=== PATIENT | male | born 1945 | race Caucasian/White ===

== ENCOUNTER → 2016-05-20 | Outpatient (CLI) | payer MEDICARE ==
--- NOTE | 2016-05-20 12:15 | MR ---
EXAMINATION TYPE: MR lumbar spine wo con DATE OF EXAM: 05/20/2016 9:39 AM COMPARISON: NONE HISTORY: Low back pain TECHNIQUE: Multiplanar, multisequence images of the lumbar spine were acquired. L1-L2: Broad-based posterior disc bulge causes mild anterior mass effect on the thecal sac. Facet art hropathy encroaches on the lateral recesses right greater than right. Circumferential extension of en dplate disc complex encroaches mildly on foramina. L2-L3: Broad-based posterior disc bulge causes mild anterior mass effect on the thecal sac. Facet art hropathy worse on the lateral recesses. No significant foraminal encroachment, only mild central sten osis. L3-L4: Facet arthropathy with hypertrophy of the ligamentum flavum encroaches on the lateral recesses , circumferential extension of posterior broad-based disc bulge causes mild anterior mass effect on t he thecal sac and some bilateral foraminal encroachment. L4-L5: Listhesis contributes with facet arthropathy with hypertrophy of ligamentum flavum to cause se raymond central canal stenosis, there is a trefoil appearance of the thecal sac, hypertrophy of the liga mentum flavum causes lateral recess encroachment. L5-S1: Facet arthropathy is present. Circumferential extension of endplate disc complex results in fo raminal encroachment left greater than right. Small central posterior disc protrusion contacts the an terior thecal sac and possibly the proximal S1 nerve roots as on prior, eccentric disc bulge towards the left posteriorly and laterally. Lumbar segments are intact. No paraspinal masses are identified. Conus medullaris has a normal appe arance. Anterolisthesis grade 1 is stable at L4-5. There is multilevel spondylosis with endplate disc ogenic marrow signal change. Loss of disc height and signal is greatest at L5-S1 compatible with disc desiccation and degenerative disc disease as on prior exam. There is a scoliosis present. Large cortical cysts are associated with the left kidney as on prior. IMPRESSION: Spinal stenosis is most significant at L4-5 as on prior exam. There is multilevel facet arthropathy, foraminal encroachment, degenerative disc disease as described.
== END | disposition home or self-care (01) ==
LOC: RADMRIMAIN 08:56
PROVIDERS: ATTEND Family Medicine
DX: M48.06 Spinal stenosis, lumbar region (principal); M51.36 Other intervertebral disc degeneration, lumbar region; M46.96 Unspecified inflammatory spondylopathy, lumbar region
CPT/HCPCS: 72148

== ENCOUNTER → 2019-04-07 | Outpatient (CLI) | payer MEDICARE ==
--- NOTE | 2019-04-07 13:14 | US ---
EXAMINATION TYPE: US kidneys/renal and bladder DATE OF EXAM: 04/07/2019 COMPARISON: NONE CLINICAL HISTORY: R31.9 hEMATURIA. microscopic hematuria EXAM MEASUREMENTS: Right Kidney: 10.8 x 5.0 x 4.1 cm Left Kidney: 10.2 x 5.3 x 4.5 cm Right Kidney: perinephric fat noted anteriorly Left Kidney: cystic areas noted, largest = 5.8 x 4.7 x 5.2cm upper pole Bladder: appears wnl Bilateral Jets seen: yes IMPRESSION: 1. Superior pole left renal simple cyst
== END | disposition home or self-care (01) ==
LOC: RADUSWWP 12:40
PROVIDERS: ATTEND Internal Medicine Hematology & Oncology
DX: N28.1 Cyst of kidney, acquired (principal)
CPT/HCPCS: 76770

== ENCOUNTER 2021-11-27 12:29 | Day surgery (SDC) | payer MEDICARE ==
[~2021-11-27 12:29] MED LIST: ACETAMINOPHEN TAB 500 MG TAB PO PRN; GABAPENTIN 300 MG CAP PO PRN; HYDROmorphone 0.5 MG/0.5 ML SYRINGE IVP PRN; LIDOCAINE 1% (10MG/ML) FOR IV START INTRADERMA PRN; MELOXICAM 7.5 MG TAB PO PRN; ONDANSETRON 4 MG/2 ML VIAL IVP ONE; TRANEXAMIC ACID IN NACL,ISO-OS 1,000 MG in SALINE 1 100ML.BAG IVPB PRN; ceFAZolin 3 GM in SODIUM CHLORIDE 0.9% 100 ML IVPB PRN
[2021-11-27] MEDS: LACTATED RINGERS 1,000 ML IV SCH (12:53)
[2021-11-27] MEDS ORDERED: fentaNYL (PF) 50 MCG/ML 2 ML AMP ONE (14:38)
[2021-11-27] MEDS ORDERED: MIDAZOLAM 2 MG/2 ML VIAL ONE (14:38)
[2021-11-27] MEDS ORDERED: ceFAZolin 1,000 MG VIAL ONE (14:38)
[2021-11-27] MEDS ORDERED: SODIUM CHLORIDE 0.9% (PF) 10 ML VIAL ONE (14:38)
[2021-11-27] MEDS ORDERED: PHENYLEPHRINE-0.9% NACL SYG 1,000 MCG/10 ML SYRINGE ONE (14:38)
[2021-11-27] MEDS ORDERED: ROPIVACAINE 5 MG/ML 30 ML VIAL ONE (14:38)
[2021-11-27] MEDS ORDERED: DEXAMETHASONE SOD PHOSPHATE 4 MG/ML 1 ML VIAL ONE (14:38)
[2021-11-27] MEDS ORDERED: TRANEXAMIC ACID IN NACL,ISO-OS 1,000 MG/100 ML BAG ONE (14:38)
[2021-11-27] MEDS ORDERED: SODIUM CHLORIDE 0.9% 100 ML BAG ONE (14:38)
[2021-11-27] MEDS ORDERED: HYDROmorphone (PF) 1 MG/ML ONE (14:38)
[2021-11-27] MEDS ORDERED: PROPOFOL 10 MG/ML 20 ML VIAL IV ONE (14:38)
[2021-11-27 19:14] LABS: Glucose,Whole Blood 139 mg/dL (70-110)
[2021-11-27 19:16] LABS: Glucose,Whole Blood 172 mg/dL (70-110)
[2021-11-27] MEDS ORDERED: HYDROmorphone 0.5 MG/0.5 ML SYRINGE IVP PRN (21:31)
[2021-11-27] MEDS ORDERED: HYDROmorphone 1 MG/ML 1 ML SYRINGE IVP PRN (21:32)
[2021-11-27] MEDS ORDERED: ONDANSETRON 4 MG/2 ML VIAL IVP PRN (21:33)
[2021-11-27 21:41] LABS: Glucose,Whole Blood 392 mg/dL (70-110)
[2021-11-27] MEDS ORDERED: INSULIN ASPART (NovoLOG) 100 UNIT/ML VIAL SQ ONE (21:46)
[2021-11-27 22:49] LABS: Glucose,Whole Blood 340 mg/dL (70-110)
[2021-11-27] MEDS: INSULIN DETEMIR (LEVEMIR) 100 UNIT/ML SYR SQ SCH (23:18)
[2021-11-27] MEDS: GABAPENTIN 400 MG CAP PO SCH (23:19)
[2021-11-27] MEDS: atenoloL 25 MG TAB PO SCH (23:19)
[2021-11-28 02:38] LABS: Glucose,Whole Blood 215 mg/dL (70-110)
[2021-11-28] MEDS: LACTATED RINGERS 1,000 ML IV SCH (03:40)
[2021-11-28] MEDS: HYDROcodone/APAP 7.5-325MG 1 EACH TAB PO PRN ×3 (05:26→20:34)
[2021-11-28] MEDS: LEVOTHYROXINE 50 MCG TAB PO SCH (05:27)
[2021-11-28 06:52] LABS: Glucose,Whole Blood 253 mg/dL (70-110)
[2021-11-28] MEDS ORDERED: FUROSEMIDE 20 MG TAB PO SCH (09:00)
[2021-11-28] MEDS: allopurinoL 300 MG TAB PO SCH (09:58)
[2021-11-28] MEDS: LOSARTAN 50 MG TAB PO SCH (09:58)
[2021-11-28] MEDS: FENOFIBRATE 160 MG TAB PO SCH (09:58)
[2021-11-28] MEDS: ATORVASTATIN 40 MG TAB PO SCH (09:58)
[2021-11-28] MEDS: POTASSIUM CHLORIDE ER 10 MEQ TAB.ER.PRT PO SCH ×2 (09:58→20:34)
[2021-11-28] MEDS: GABAPENTIN 400 MG CAP PO SCH ×2 (09:58→20:35)
[2021-11-28] MEDS: ASCORBIC ACID 500 MG TAB PO SCH (09:58)
[2021-11-28] MEDS: amLODIPine 5 MG TAB PO SCH (09:58)
[2021-11-28] MEDS: INSULIN ASPART (NovoLOG) 100 UNIT/ML VIAL SQ SCH ×4 (09:59→21:45)
--- NOTE | 2021-11-28 10:16 | OP ---
OPERATIVE REPORT PREOPERATIVE DIAGNOSIS: Severe osteoarthritis of the right knee. POSTOPERATIVE DIAGNOSIS: Severe osteoarthritis of the right knee. PROCEDURE PERFORMED: Right total knee arthroplasty. IMPLANTS: 1. Decker and Nephew Journey II CR Oxinium cruciate-retaining femoral component, size 8, right. 2. Decker [employer] Nephew Journey nonporous tibial baseplate, size 7, right. 3. Decker [employer] Nephew Journey II XLPE deep-dished articular insert, size 7-8, right, 9 mm. 4. Decker and Nephew Norma II oval resurfacing patellar component, 35 mm. 5. All components were cemented using Palacos R bone cement. 6. The articulation was Oxinium on polyethylene. ANESTHESIA: General. ESTIMATED BLOOD LOSS: 50 mL. SPECIMENS REMOVED: Bone and cartilage. CONDITION: Stable. DISPOSITION: PACU. INDICATIONS FOR PROCEDURE: After failing conservative treatment, we discussed surgical and nonsurgical treatment options at length. The patient wishes to proceed with a total knee arthroplasty. Complications specific to this procedure were discussed at length, including but not limited to infection, bleeding, stiffness, and nerve injury. The patient was given the option of delaying surgery, but he wishes to proceed knowing these risks. The patient is aware of all these complications, and informed consent was obtained. OPERATIVE FINDINGS: The operative findings are consistent with severe osteoarthritis of the right knee. DESCRIPTION OF PROCEDURE: The patient was seen in the preoperative area, and the consent was reviewed, and the operative site was marked with a skin marker. The patient verified the procedure and the operative site. An adductor canal pain catheter and an iPACK block were placed by Anesthesia in the preoperative area. The patient was then brought to the operating room and given preoperative antibiotics intravenously. A gram of tranexamic acid was also given intravenously. A general anesthetic was then administered by the Anesthesia Department. Tourniquet was placed in the upper thigh, and the lower extremity was prepped with chlorhexidine and draped in the usual sterile fashion. A universal time- out was then performed to confirm the patient's name, surgical site, allergies, and consent. The lower extremity was then exsanguinated, and the tourniquet was inflated to 250 mmHg. A standard anterior midline approach to the knee was then performed. The skin and subcutaneous tissues were sharply dissected down to the patellar tendon. A medial parapatellar arthrotomy was then performed. The knee was then extended, the patella was everted, and the knee was again flexed. The infrapatellar fat pad was removed in order to enhance exposure. The anterior horns of both menisci were excised, and a release was performed at the posteromedial aspect of the knee. On gross visual inspection, there was complete loss of articular cartilage in the medial and patellofemoral joint spaces. There was also significant cartilage damage in the lateral compartment. There were multiple periarticular osteophytes globally about the knee, which were removed with a rongeur. Femoral canal was then opened with a 9.5 mm intramedullary drill. An 8 mm intramedullary leslie was inserted in the femoral canal with the distal femoral cutting guide set for 5 degrees of valgus. Distal femoral cutting block was then pinned in place. The intramedullary leslie was then removed, and the distal femur was then cut. The cutting block was then removed, and the cut was checked for symmetry. The resected bone was then measured to confirm the appropriate distal femoral resection. Next, the sizing guide was then placed and set for 3 degrees of external rotation based off the epicondylar axis and Bacon's line. Pins were then placed through the drill holes, and the femur was sized using the sizing stylus. The sizing guide was then removed. Spikes of the femoral block were then placed in the pre-drilled holes and malleted in place. Two 45 mm pins were then placed in the fixation holes on the cutting block. An Jason wing was used to ensure there be no notching with the anterior cut. The anterior condyles were then cut without notching. The anterior core cut was then performed followed by the posterior cut, posterior chamfer cut, and anterior chamfer cut. Collateral ligaments were protected during the entire process. The cutting block was then removed. Any remaining bone and osteophytes were removed off the femur with a rongeur. The femoral canal was plugged with autologous bone. Attention was then directed to the tibia. The remaining ACL was removed with a rongeur, and the tibia was gently subluxed forward with a large bent-knee retractor. Any remaining menisci were then excised. The posterolateral corner was cauterized in order to coagulate the lateral genicular artery. The extramedullary tibial cutting guide was then placed and set for the appropriate rotation, slope, and depth of resection. Proximal tibial cutting guide was then pinned in place. Proximal tibia was then cut and sized. Femoral trial was then placed. A narrow saw blade was then used to remove the anterior intercondylar femoral bone. CR notch trial was then placed. Tibial trial was then placed with appropriate-sized insert. The knee was able to fully extend and flex to 130 degrees and stable throughout all range of motion. The knee was then extended. The patella was everted. The patella was then measured, and then using an osteotomy guide, the patella was cut at the appropriate level. The patella was then measured and drilled, and the patella trial was then placed. The knee was taken through a range of motion with the patella trial, and the patella tracked normally using the no-thumb technique. The knee was then extended. The patella trial was removed, and the knee was again flexed. Lug holes were drilled through the femoral trial, and the femoral trial was then removed. The tibia was re-exposed, and the tibial broach guide was pinned in place after set for the appropriate rotation to allow for most coverage without overhang. The tibia was then reamed and broached. The cut surfaces were then irrigated with pulsatile lavage. The knee was also irrigated with Irrisept solution. Ports were then opened, the cement was mixed, and the components were cemented in place. The cement was allowed to harden with the knee in full extension. After the cement had hardened, the tourniquet was released, and hemostasis was obtained. A second gram of tranexamic acid was also given intravenously. The knee was again irrigated. Again, it was taken through a full range of motion and stable from 0 to 130 degrees, and the patella tracked normally. Fascia was closed with 0 Vicryl followed by #2 Stratafix suture. Subcutaneous tissue was closed with 3-0 Vicryl followed by 3-0 Stratafix. Exofin glue was used for the skin and placed on the knee in flexion. After the glue had dried, an Optifoam silver- impregnated dressing was applied. The patient was then transferred to recovery room in stable condition. Carburetor Expert, NIRAV Sommer was required due to the complexity of the surgery and the need for a skilled surgical technology instructor. She assisted in positioning, draping, retraction, and closure of the wound. MMODL / IJN: [id number] /
--- NOTE | 2021-11-28 10:26 | P.ANPRN ---
Procedure Note - Anesthesia - Nerve Block Performed Right Adductor Canal Infusion Time Out Performed: Yes (1333) Date of Procedure: 11/28/21 Procedure Start Time: 13:34 Procedure Stop Time: 13:39 Location of Patient: PreOp Indication: Acute Post-Operative Pain, Requested by Surgeon Specifically requested for management of pain by DrPeter: Emanuel Montalvo Sedation Type: Sedate with meaningful contact maintained Preparation: Sterile Prep Position: Supine Catheter Depth at Skin (cm): 8 Catheter: Indwelling Needle Types: Pajunk Needle Gauge: 18 Ultrasound used to visualize needle placement: Yes Ultrasound used to observe medication spread: Yes Injectate: 0.5% Ropivacaine (see comment for volume) (15cc+5cc nacl pf) Blood Aspirated: No Pain Paresthesia on Injection Noted: No Resistance on Injection: Normal Image Stored and Saved: Yes Events: Uneventful and Well Tolerated
--- NOTE | 2021-11-28 10:28 | P.ANPRN ---
Procedure Note - Anesthesia - Nerve Block Performed Right iPack Single Time Out Performed: Yes (1333) Date of Procedure: 11/28/21 Procedure Start Time: 13:40 Procedure Stop Time: 13:43 Location of Patient: PreOp Indication: Acute Post-Operative Pain, Requested by Surgeon Specifically requested for management of pain by DrPeter: Emanuel Montalvo Sedation Type: Sedate with meaningful contact maintained Preparation: Sterile Prep Position: Supine Catheter: None Needle Types: Pajunk Needle Gauge: 21 Ultrasound used to visualize needle placement: Yes Ultrasound used to observe medication spread: Yes Injectate: 0.5% Ropivacaine (see comment for volume) (15cc+ 5cc nacl pf) Blood Aspirated: No Pain Paresthesia on Injection Noted: No Resistance on Injection: Normal Image Stored and Saved: Yes Events: Uneventful and Well Tolerated
[2021-11-28 11:37] LABS: Glucose,Whole Blood 249 mg/dL (70-110)
--- NOTE | 2021-11-28 11:48 | P.PN ---
Subjective Progress Note Date: 11/28/21 Principal diagnosis: DJD right knee. S/P TKA right. This is a 76 yo male who is POD #1 s/p TKA right. No new complaints or concerns. Awaiting rehab placement.Vital signs are stable. Objective - Vital Signs Vital signs: Vital Signs Temp 98 F 11/28/21 07:23 Pulse 56 L 11/28/21 07:23 Resp 18 11/28/21 07:23 BP 176/67 11/28/21 07:23 Pulse Ox 96 11/28/21 07:23 FiO2 Intake & Output 11/27/21 11/28/21 11/28/21 18:59 06:59 18:59 Intake Total 296 Output Total 600 Balance -600 296 Weight 130.1 kg 130.1 kg Intake: Oral 296 Output: Urine 600 Other: Voiding Method Urinal Toilet Urinal # Voids 1 - Exam This is a pleasant 76-year-old male in no acute distress. He is alert and oriented 3. Exam of the right knee reveals that his dressing is clean, dry and intact. He has full foot and ankle motion without difficulty or pain. Neurovascular status to the lower extremity is intact. - Labs Labs: Abnormal Lab Results - Last 24 Hours (Table) 11/27/21 11/27/21 11/27/21 Range/Units 13:18 16:43 21:37 POC Glucose (mg/dL) 139 H 172 H 392 H (70-110) mg/dL 11/27/21 11/28/21 11/28/21 Range/Units 22:48 02:36 06:51 POC Glucose (mg/dL) 340 H 215 H 253 H (70-110) mg/dL Assessment and Plan (1) Primary osteoarthritis of right knee Current Visit: Yes Status: Acute Code(s): M17.11 - UNILATERAL PRIMARY OSTEOARTHRITIS, RIGHT KNEE SNOMED Code(s): 763182878986112 (2) Status post total right knee replacement Current Visit: Yes Status: Acute Code(s): Z96.651 - PRESENCE OF RIGHT ARTIFICIAL KNEE JOINT SNOMED Code(s): 0737330632015 Plan: The clinical findings are discussed with the patient. He is awaiting transfer to inpatient rehabilitation. Authorization is pending. Continue care.
[2021-11-28 16:56] LABS: Glucose,Whole Blood 186 mg/dL (70-110)
--- NOTE | 2021-11-28 18:10 | P.CONS ---
History of Present Illness - Reason for Consult Consult date: 11/28/21 Medical management Requesting physician: Emanuel Montalvo - Chief Complaint Right knee surgery - History of Present Illness This is a very pleasant 76-year-old patient who follows with Dr. Austin. Chronic stable medical conditions include diabetes, hypertension, hyperlipidemia, hypothyroid, gout. Bilateral kidney stones. Patient underwent right total knee arthroplasty yesterday. This morning, sitting up in a chair. Pain at the operative site. No nausea vomiting. Did eat his breakfast.. Denies any cardiac history. Patient has arthritic pain in other joints. Doing some passive exercises given to him. Review of systems: GEN.: None EYES: None HEENT: None NECK: None RESPIRATORY: None CARDIOVASCULAR: None GASTROINTESTINAL: None GENITOURINARY: None MUSCULOSKELETAL: Joint pains LYMPHATICS: None HEMATOLOGICAL: None PSYCHIATRY: None NEUROLOGICAL: None Past medical history to include: Diabetes, hypertension, hyperlipidemia, hypothyroid, gout, osteoarthritis, b ilateral kidney stones. Social history: Patient lives with his ex-. No smoking, no alcohol. 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 Physical examination: VITAL SIGNS: 98.0, 56, 18, 176/67, 96% room air GENERAL:, BMI 41.2, sitting up in chair, awake, comfortable. EYES: Pupils equal. Conjunctiva normal. HEENT: External appearance of nose and ears normal, oral cavity grossly normal. NECK: JVD not raised; masses not palpable. HEART: First and second heart sounds are normal; no edema. LUNGS: Respiratory rate normal; clear to auscultation. ABDOMEN: Soft, nontender, liver spleen not palpable, no masses palpable. PSYCH: Alert and oriented x3; mood and affect normal. MUSCULOSKELETAL:No Clubbing/cyanosis;muscles-grossly intact, evidence of OA. Dressing over the right knee. NEUROLOGICAL: Cranial nerves grossly intact; no facial asymmetry, power and sensation grossly intact. LYMPHATICS: No lymph nodes palpable in the axilla and neck INVESTIGATIONS, reviewed in the clinical context: Accu-Cheks noted. Assessment and plan: -Right total knee arthroplasty. Lovenox for DVT prophylaxis. Pain control. -Primary osteomyelitis multiple joints bilaterally Pain control. -Diabetes mellitus type 2 chronically on insulin. Accu-Cheks with sliding scale. -Essential hypertension Atenolol, amlodipine, losartan. -Hypothyroid Synthroid 50 g a -Hyperlipidemia Lipitor 40 mg a -Diabetic peripheral neuropathy Neurontin 400 mg twice a day. -Obesity BMI 41.2 Weight loss measures Patient does take Lasix 60 mg a day. He drinks at times of water. He gets lower extremity edema. Zebulon to be more venous insufficiency. We'll cut back the patient. 2000 mL daily. Cut back Lasix to 40 mg a day. Resume home medications. Subcu Lovenox for DVT prophylaxis. Check labs in the morning. Discussed at length with the patient. Thank you Dr. Montalvo Past Medical History Past Medical History: Diabetes Mellitus, Hyperlipidemia, Hypertension, Thyroid Disorder Additional Past Medical History / Comment(s): gout, heart murmur all his life. arthritis . painful knees bilaterally. hx kidney stones. History of Any Multi-Drug Resistant Organisms: None Reported Past Surgical History: Appendectomy, Tonsillectomy Additional Past Surgical History / Comment(s): 2 ganglion cyst left wrist and one on rt wrist. elbow surgery. rt shoulder surgery, lithotripsy Past Anesthesia/Blood Transfusion Reactions: No Reported Reaction Additional Past Anesthesia/Blood Transfusion Reaction / Comm: no blood transfusions Past Psychological History: No Psychological Hx Reported Smoking Status: Never smoker Past Alcohol Use History: None Reported Past Drug Use History: None Reported - Past Family History Father Family Medical History: Myocardial Infarction ([place]) Additional Family Medical History / Comment(s): cabg Medications and Allergies Home Medications Medication Instructions Recorded Confirmed Type Ascorbic Acid [Vitamin C] 500 mg PO DAILY 11/22/21 11/22/21 History Atorvastatin Calcium [Lipitor] 40 mg PO DAILY 11/22/21 11/22/21 History Fenofibrate 160 mg PO DAILY 11/22/21 11/22/21 History Insulin Aspart [NovoLOG Flexpen] 0 units SQ BID 11/22/21 11/22/21 History Insulin Glargine,Hum.rec.anlog 60 units SQ HS 11/22/21 11/22/21 History [Lantus Solostar Pen] Levothyroxine Sodium [Synthroid] 50 mcg PO DAILY 11/22/21 11/22/21 History Losartan Potassium 100 mg PO DAILY 11/22/21 11/22/21 History Potassium Chloride [K-Tab ER] 10 meq PO BID 11/22/21 11/22/21 History Unk Fish Oil 1 tab PO DAILY 11/22/21 11/22/21 History Unk Garlic 1 tab PO DAILY 11/22/21 11/22/21 History allopurinoL 300 mg PO DAILY 11/22/21 11/22/21 History amLODIPine [Norvasc] 5 mg PO DAILY 11/22/21 11/22/21 History atenoloL 25 mg PO HS 11/22/21 11/22/21 History Aspirin 325 mg PO BID #60 tab 11/28/21 Rx Celecoxib [CeleBREX] 200 mg PO DAILY #30 capsule 11/28/21 Rx Furosemide [Lasix] 40 mg PO DAILY #0 11/28/21 11/22/21 Rx Gabapentin [Neurontin] 400 mg PO BID #6 cap 11/28/21 Rx HYDROcodone/APAP 7.5-325MG [[place] 1 - 2 tab PO Q6HR PRN #32 tab 11/28/21 Rx 7.5-325] Ondansetron Odt [Zofran Odt] 4 mg PO Q8HR PRN #14 tab 11/28/21 Rx Sennosides-Docusate Sodium 1 tab PO BID #60 tablet 11/28/21 Rx [Senokot-S] Allergies Allergy/AdvReac Type Severity Reaction Status Date / Time No Known Allergies Allergy Verified 11/27/21 12:52 Physical Exam Vitals: Vital Signs Temp Pulse Resp BP Pulse Ox 11/28/21 07:23 98 F 56 L 18 176/67 96 11/28/21 02:00 97.5 F L 59 L 18 134/79 95 11/27/21 23:15 70 148/82 11/27/21 20:24 97.9 F 73 18 148/83 98 Intake and Output 11/27/21 11/28/21 11/28/21 22:59 06:59 14:59 Intake Total 296 Output Total 300 300 Balance -300 -300 296 Intake: Oral 296 Output: Urine 300 300 Other: Voiding Method Urinal Toilet Urinal # Voids 1 Weight 130.1 kg Results Labs: Abnormal Lab Results - Last 24 Hours (Table) 11/27/21 11/27/21 11/27/21 Range/Units 13:18 16:43 21:37 POC Glucose (mg/dL) 139 H 172 H 392 H (70-110) mg/dL 11/27/21 11/28/21 11/28/21 Range/Units 22:48 02:36 06:51 POC Glucose (mg/dL) 340 H 215 H 253 H (70-110) mg/dL
[2021-11-28] MEDS: ENOXAPARIN 30 MG/0.3 ML SYRINGE SQ SCH (20:35)
[2021-11-28] MEDS: atenoloL 25 MG TAB PO SCH (20:35)
[2021-11-28] MEDS: INSULIN DETEMIR (LEVEMIR) 100 UNIT/ML SYR SQ SCH (20:37)
[2021-11-28 20:44] LABS: Glucose,Whole Blood 289 mg/dL (70-110)
[2021-11-29] MEDS: LACTATED RINGERS 1,000 ML IV SCH (05:01)
[2021-11-29] MEDS: LEVOTHYROXINE 50 MCG TAB PO SCH (05:13)
[2021-11-29] MEDS: HYDROcodone/APAP 7.5-325MG 1 EACH TAB PO PRN ×3 (05:15→21:24)
[2021-11-29 07:11] LABS: Glucose,Whole Blood 200 mg/dL (70-110)
[2021-11-29 07:11] LABS: Basophils % (A) 0 %; Eosinophils # (A) 0.1 k/uL (0-0.7); Eosinophils % (A) 2 %; HCT 35.4 % (39.0-53.0); HGB 11.7 gm/dL (13.0-17.5); Lymphocytes # (A) 2.6 k/uL (1.0-4.8); Lymphocytes % (A) 33 %; MCH 31.7 pg (25.0-35.0); MCHC 33.1 g/dL (31.0-37.0); MCV 95.9 fL (80.0-100.0); Mean Platelet Volume 7.6; Monocytes # (A) 0.6 k/uL (0-1.0); Monocytes % (A) 8 %; Neutrophils # (A) 4.4 k/uL (1.3-7.7); Neutrophils % (A) 56 %; Platelet Count 170 k/uL (150-450); RDW 14.7 % (11.5-15.5); WBC 7.9 k/uL (3.8-10.6)
[2021-11-29 07:22] LABS: African American GFR (CKD) 55 (>60 ml/min/1.73 sqM); Anion Gap 8 mmol/L; Blood Urea Nitrogen 28 mg/dL (9-20); Calcium 8.5 mg/dL (8.4-10.2); Carbon Dioxide 23 mmol/L (22-30); Chloride 107 mmol/L (98-107); Glucose 195 mg/dL (74-99); Non-African American GFR(CKD) 48 (>60 ml/min/1.73 sqM); Potassium 4.1 mmol/L (3.5-5.1); Sodium 138 mmol/L (137-145)
[2021-11-29] MEDS: INSULIN ASPART (NovoLOG) 100 UNIT/ML VIAL SQ SCH ×4 (08:05→21:13)
[2021-11-29] MEDS: FENOFIBRATE 160 MG TAB PO SCH (08:05)
[2021-11-29] MEDS: GABAPENTIN 400 MG CAP PO SCH ×2 (08:05→21:12)
[2021-11-29] MEDS: allopurinoL 300 MG TAB PO SCH (08:05)
[2021-11-29] MEDS: LOSARTAN 50 MG TAB PO SCH (08:05)
[2021-11-29] MEDS: amLODIPine 5 MG TAB PO SCH (08:05)
[2021-11-29] MEDS: FUROSEMIDE 40 MG TAB PO SCH ×2 (08:06→08:15)
[2021-11-29] MEDS: POTASSIUM CHLORIDE ER 10 MEQ TAB.ER.PRT PO SCH ×2 (08:06→21:12)
[2021-11-29] MEDS: ASCORBIC ACID 500 MG TAB PO SCH (08:06)
[2021-11-29] MEDS: ATORVASTATIN 40 MG TAB PO SCH (08:06)
[2021-11-29] MEDS: ENOXAPARIN 30 MG/0.3 ML SYRINGE SQ SCH ×2 (08:11→21:12)
--- NOTE | 2021-11-29 10:04 | P.DS ---
Providers Expected date of discharge: 11/29/21 Attending physician: Emanuel Montalvo Consults: 11/27/21 21:39 Consult Physician Routine Consulting Provider: Daniel Kovacs Consult Reason/Comments: Medical Management Do you want consulting provider notified?: Yes Primary care physician: Dave Austin - Discharge Diagnosis(es) (1) Primary osteoarthritis of right knee Current Visit: Yes Status: Acute (2) Status post total right knee replacement Current Visit: Yes Status: Acute Hospital Course: This is a 76-year-old male with known history of degenerative arthritis of the right knee. The patient presented for evaluation as an outpatient. After disc ussion and consideration patient elects to proceed with total knee arthroplasty. The patient is seen preoperatively by Dr. Montalvo and medically cleared for surgery by their primary care physician. Patient is admitted to [facility] on 11/27/2021 for total knee arthroplasty. The procedure is performed without complication or sequelae. The patient is doing well postoperatively. Labs and vital signs are stable on day of discharge. On day of discharge patient's knee incision is healing well. There is minimal erythema. There is no drainage noted at this time. There is minimal soft tissue swelling to the knee. Patient has full foot and ankle motion without difficulty or pain. Calf is soft and nontender to palpation. Neurovascular status to the right lower extremity is intact. Patient is discharged to rehab in good condition. Please see med rec for accurate list of home medications. Plan - Discharge Summary Discharge Rx Participant: No New Discharge Prescriptions: New Celecoxib [CeleBREX] 200 mg PO DAILY #30 capsule Sennosides-Docusate Sodium [Senokot-S] 1 tab PO BID #60 tablet Aspirin 325 mg PO BID #60 tab HYDROcodone/APAP 7.5-325MG [[place] 7.5-325] 1 - 2 tab PO Q6HR PRN #32 tab PRN Reason: Pain Ondansetron Odt [Zofran Odt] 4 mg PO Q8HR PRN #14 tab PRN Reason: Nausea Continue Ascorbic Acid [Vitamin C] 500 mg PO DAILY Insulin Glargine,Hum.rec.anlog [Lantus Solostar Pen] 60 units SQ HS Fenofibrate 160 mg PO DAILY Atorvastatin Calcium [Lipitor] 40 mg PO DAILY Losartan Potassium 100 mg PO DAILY Insulin Aspart [NovoLOG Flexpen] 0 units SQ BID atenoloL 25 mg PO HS Levothyroxine Sodium [Synthroid] 50 mcg PO DAILY allopurinoL 300 mg PO DAILY Potassium Chloride [K-Tab ER] 10 meq PO BID amLODIPine [Norvasc] 5 mg PO DAILY Gabapentin [Neurontin] 400 mg PO BID #6 cap Changed Furosemide [Lasix] 40 mg PO DAILY #0 Discontinued traMADol HCL 50 mg PO DAILY PRN PRN Reason: Pain No Action Unk Garlic 1 tab PO DAILY Unk Fish Oil 1 tab PO DAILY Discharge Medication List Ascorbic Acid [Vitamin C] 500 mg PO DAILY 11/22/21 [History] Atorvastatin Calcium [Lipitor] 40 mg PO DAILY 11/22/21 [History] Fenofibrate 160 mg PO DAILY 11/22/21 [History] Insulin Aspart [NovoLOG Flexpen] 0 units SQ BID 11/22/21 [History] Insulin Glargine,Hum.rec.anlog [Lantus Solostar Pen] 60 units SQ HS 11/22/21 [History] Levothyroxine Sodium [Synthroid] 50 mcg PO DAILY 11/22/21 [History] Losartan Potassium 100 mg PO DAILY 11/22/21 [History] Potassium Chloride [K-Tab ER] 10 meq PO BID 11/22/21 [History] Unk Fish Oil 1 tab PO DAILY 11/22/21 [History] Unk Garlic 1 tab PO DAILY 11/22/21 [History] allopurinoL 300 mg PO DAILY 11/22/21 [History] amLODIPine [Norvasc] 5 mg PO DAILY 11/22/21 [History] atenoloL 25 mg PO HS 11/22/21 [History] Aspirin 325 mg PO BID #60 tab 11/28/21 [Rx] Celecoxib [CeleBREX] 200 mg PO DAILY #30 capsule 11/28/21 [Rx] Furosemide [Lasix] 40 mg PO DAILY #0 11/28/21 [Rx] Gabapentin [Neurontin] 400 mg PO BID #6 cap 11/28/21 [Rx] HYDROcodone/APAP 7.5-325MG [[place] 7.5-325] 1 - 2 tab PO Q6HR PRN #32 tab 11/28/21 [Rx] Ondansetron Odt [Zofran Odt] 4 mg PO Q8HR PRN #14 tab 11/28/21 [Rx] Sennosides-Docusate Sodium [Senokot-S] 1 tab PO BID #60 tablet 11/28/21 [Rx] Follow up Appointment(s)/Referral(s): Dave Austin MD [Primary Care Provider] - 1 Week [facility], [NON-STAFF] - As Needed Emanuel Montalvo DO [Doctor of Osteopathic Medicine] - 1 Week Activity/Diet/Wound Care/Special Instructions: Dressing to stay intact for 7 days and then may be removed by yourself or by home care. May shower with dressing intact. If dressing becomes saturated please remove. May bear weight as tolerated with walker. Please take aspirin 325mg twice daily for 30 days to help prevent blood clots. Please wear compression stockings during the day until follow up appointment. May remove at night. Please follow up with [facility] and call with any questions or concerns, . fluid restrict 1800 cc/day Discharge Disposition: TRANSFER TO SNF/ECF
[2021-11-29 11:58] LABS: Glucose,Whole Blood 153 mg/dL (70-110)
[2021-11-29] MEDS ORDERED: HYDROcodone/APAP 7.5-325MG 1 EACH TAB ONE (12:17)
--- NOTE | 2021-11-29 14:55 | XR ---
Limited right knee HISTORY: Status post right knee arthroplasty 2 views the right knee Patient is status post right knee arthroplasty. There is anatomic alignment. Lucencies present within the soft tissues. There is soft tissue swelling. IMPRESSION: Orthopedic follow-up.
[2021-11-29 17:02] LABS: Glucose,Whole Blood 199 mg/dL (70-110)
--- NOTE | 2021-11-29 17:37 | P.PN ---
Progress Note - Text Progress Note Date: 11/29/21 - Chief Complaint Right knee surgery Hospital course This is a very pleasant 76-year-old patient who follows with Dr. Austin. Chronic stable medical conditions include diabetes, hypertension, hyperlipidemia, hypothyroid, gout. Bilateral kidney stones. Patient underwent right total knee arthroplasty yesterday. This morning, sitting up in a chair. Pain at the operative site. No nausea vomiting. Did eat his breakfast.. Denies any cardiac history. Patient has arthritic pain in other joints. Doing some passive exercises given to him. November 29: Some pain at the operative site. Looking to going to rehab. Oral intake fair. Daughter the bedside. Questions answered. Active Medications Hydrocodone Bitart/Acetaminophen (Hydrocodone/Apap 7.5-325mg 1 Each Tab) 1 each PO Q4HR PRN PRN Reason: Pain Last Admin: 11/29/21 12:18 Dose: 1 each Allopurinol (Allopurinol 300 Mg Tab) 300 mg PO DAILY [facility] Last Admin: 11/29/21 08:05 Dose: 300 mg Amlodipine Besylate (Amlodipine 5 Mg Tab) 5 mg PO DAILY [facility] Last Admin: 11/29/21 08:05 Dose: 5 mg Ascorbic Acid (Ascorbic Acid 500 Mg Tab) 500 mg PO DAILY [facility] Last Admin: 11/29/21 08:06 Dose: 500 mg Atenolol (Atenolol 25 Mg Tab) 25 mg PO HS [facility] Last Admin: 11/28/21 20:35 Dose: 25 mg Atorvastatin Calcium (Atorvastatin 40 Mg Tab) 40 mg PO DAILY [facility] Last Admin: 11/29/21 08:06 Dose: 40 mg Enoxaparin Sodium (Enoxaparin 30 Mg/0.3 Ml Syringe) 30 mg SQ Q12HR [facility] Last Admin: 11/29/21 08:11 Dose: 30 mg Fenofibrate (Fenofibrate 160 Mg Tab) 160 mg PO DAILY [facility] Last Admin: 11/29/21 08:05 Dose: 160 mg Furosemide (Furosemide 40 Mg Tab) 40 mg PO DAILY [facility] Last Admin: 11/29/21 08:15 Dose: Not Given Gabapentin (Gabapentin 400 Mg Cap) 400 mg PO BID [facility] Last Admin: 11/29/21 08:05 Dose: 400 mg Hydromorphone HCl (Hydromorphone 0.5 Mg/0.5 Ml Syringe) 0.5 mg IVP Q3HR PRN PRN Reason: Pain Hydromorphone HCl (Hydromorphone 1 Mg/Ml 1 Ml Syringe) 1 mg IVP Q3HR PRN PRN Reason: Pain Scale 6 to 10 Last Admin: 11/27/21 23:19 Dose: 1 mg Lactated Ringer's (Lactated Ringers) 1,000 mls @ 20 mls/hr IV .Q24H [facility] Stop: 12/27/21 05:41 Last Admin: 11/29/21 05:01 Dose: Not Given Insulin Aspart (Insulin Aspart (Novolog) 100 Unit/Ml Vial) 0 unit SQ ACHS [facility]; Protocol Last Admin: 11/29/21 17:04 Dose: Not Given Insulin Detemir (Insulin Detemir (Levemir) 100 Unit/Ml Syr) 60 unit SQ HS [facility] Last Admin: 11/28/21 20:37 Dose: 60 unit Levothyroxine Sodium (Levothyroxine 50 Mcg Tab) 50 mcg PO DAILY@0630 [facility] Last Admin: 11/29/21 05:13 Dose: 50 mcg Lidocaine HCl (Lidocaine 1% (10mg/Ml) For Iv Start) 0.1 ml INTRADERMA PER PROTOCOL PRN PRN Reason: IV Start Stop: 12/27/21 05:41 Losartan Potassium (Losartan 50 Mg Tab) 100 mg PO DAILY [facility] Last Admin: 11/29/21 08:05 Dose: 100 mg Ondansetron HCl (Ondansetron 4 Mg/2 Ml Vial) 4 mg IVP Q8HR PRN PRN Reason: Nausea And Vomiting Potassium Chloride (Potassium Chloride Er 10 Meq Tab.Er.Prt) 10 meq PO BID [facility] Last Admin: 11/29/21 08:06 Dose: 10 meq Past medical history to include: Diabetes, hypertension, hyperlipidemia, hypothyroid, gout, osteoarthritis, bilateral kidney stones. Social history: Patient lives with his ex-. No smoking, no alcohol. 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 Physical examination: VITAL SIGNS: 98.7, 53, 16, 1 22 x 67, 95% room air GENERAL:, Sitting up in a chair EYES: Pupils equal. Conjunctiva normal. HEENT: External appearance of nose and ears normal, oral cavity grossly normal. NECK: JVD not raised; masses not palpable. HEART: First and second heart sounds are normal; no edema. LUNGS: Respiratory rate normal; clear to auscultation. ABDOMEN: Soft, nontender, liver spleen not palpable, no masses palpable. PSYCH: Alert and oriented x3; mood and affect normal. MUSCULOSKELETAL:No Clubbing/cyanosis;muscles-grossly intact, evidence of OA. Dressing over the right knee. INVESTIGATIONS, reviewed in the clinical context: WBC 7.9 hemoglobin 11.7 platelets 170, potassium 4.1, BUN 28, creatinine 1.43 Accu-Cheks noted. Assessment and plan: -Right total knee arthroplasty. Lovenox for DVT prophylaxis. Pain control. -Primary osteomyelitis multiple joints bilaterally Pain control. -Diabetes mellitus type 2 chronically on insulin. Accu-Cheks with sliding scale. -Acute postprocedure blood loss anemia as suspected from surgery Start ferrous sulfate -Essential hypertension Atenolol, amlodipine, losartan. 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 Fluid restrict 2000 mL a day. -Hyperlipidemia Lipitor 40 mg a -Diabetic peripheral neuropathy Neurontin 400 mg twice a day. -Obesity BMI 41.2 Weight loss measures Will DC Lasix. Put patient on fluid restriction 2000 mL day. Other medications to continue. Pending authorization to go to [facility]. Thank you Dr. Montalvo
[2021-11-29 21:06] LABS: Glucose,Whole Blood 202 mg/dL (70-110)
[2021-11-29] MEDS: atenoloL 25 MG TAB PO SCH (21:12)
[2021-11-29] MEDS: INSULIN DETEMIR (LEVEMIR) 100 UNIT/ML SYR SQ SCH (22:05)
[2021-11-30] MEDS: LACTATED RINGERS 1,000 ML IV SCH (05:59)
[2021-11-30] MEDS: LEVOTHYROXINE 50 MCG TAB PO SCH (05:59)
[2021-11-30 06:56] LABS: Glucose,Whole Blood 171 mg/dL (70-110)
[2021-11-30] MEDS: allopurinoL 300 MG TAB PO SCH (07:52)
[2021-11-30] MEDS: ENOXAPARIN 30 MG/0.3 ML SYRINGE SQ SCH (07:52)
[2021-11-30] MEDS: LOSARTAN 50 MG TAB PO SCH (07:52)
[2021-11-30] MEDS: GABAPENTIN 400 MG CAP PO SCH ×2 (07:52→22:40)
[2021-11-30] MEDS: FENOFIBRATE 160 MG TAB PO SCH (07:52)
[2021-11-30] MEDS: ATORVASTATIN 40 MG TAB PO SCH (07:52)
[2021-11-30] MEDS: POTASSIUM CHLORIDE ER 10 MEQ TAB.ER.PRT PO SCH ×2 (07:53→22:40)
[2021-11-30] MEDS: ASCORBIC ACID 500 MG TAB PO SCH (07:53)
[2021-11-30] MEDS: amLODIPine 5 MG TAB PO SCH (07:53)
[2021-11-30] MEDS: INSULIN ASPART (NovoLOG) 100 UNIT/ML VIAL SQ SCH ×4 (07:53→22:39)
[2021-11-30] MEDS: HYDROcodone/APAP 7.5-325MG 1 EACH TAB PO PRN ×3 (08:13→23:00)
[2021-11-30 11:54] LABS: Glucose,Whole Blood 170 mg/dL (70-110)
--- NOTE | 2021-11-30 13:00 | P.PN ---
Progress Note - Text Progress Note Date: 11/30/21 - Chief Complaint Right knee surgery Hospital course This is a very pleasant 76-year-old patient who follows with Dr. Austin. Chronic stable medical conditions include diabetes, hypertension, hyperlipidemia, hypothyroid, gout. Bilateral kidney stones. Patient underwent right total knee arthroplasty yesterday. This morning, sitting up in a chair. Pain at the operative site. No nausea vomiting. Did eat his breakfast.. Denies any cardiac history. Patient has arthritic pain in other joints. Doing some passive exercises given to him. November 29: Some pain at the operative site. Looking to going to rehab. Oral intake fair. Daughter the bedside. Questions answered. November 30: Using a walker. Discussed with the patient. Lasix discontinued. Fluid restriction 1800 mL daily. If need be. [place] stockings down the road. Pending authorization for rehab. Active Medications Hydrocodone Bitart/Acetaminophen (Hydrocodone/Apap 7.5-325mg 1 Each Tab) 1 each PO Q4HR PRN PRN Reason: Pain Last Admin: 11/30/21 08:13 Dose: 1 each Allopurinol (Allopurinol 300 Mg Tab) 300 mg PO DAILY [facility] Last Admin: 11/30/21 07:52 Dose: 300 mg Amlodipine Besylate (Amlodipine 5 Mg Tab) 5 mg PO DAILY [facility] Last Admin: 11/30/21 07:53 Dose: 5 mg Ascorbic Acid (Ascorbic Acid 500 Mg Tab) 500 mg PO DAILY [facility] Last Admin: 11/30/21 07:53 Dose: 500 mg Atenolol (Atenolol 25 Mg Tab) 25 mg PO HS [facility] Last Admin: 11/29/21 21:12 Dose: 25 mg Atorvastatin Calcium (Atorvastatin 40 Mg Tab) 40 mg PO DAILY [facility] Last Admin: 11/30/21 07:52 Dose: 40 mg Enoxaparin Sodium (Enoxaparin 30 Mg/0.3 Ml Syringe) 30 mg SQ Q12HR [facility] Last Admin: 11/30/21 07:52 Dose: 30 mg Fenofibrate (Fenofibrate 160 Mg Tab) 160 mg PO DAILY [facility] Last Admin: 11/30/21 07:52 Dose: 160 mg Gabapentin (Gabapentin 400 Mg Cap) 400 mg PO BID [facility] Last Admin: 11/30/21 07:52 Dose: 400 mg Hydromorphone HCl (Hydromorphone 0.5 Mg/0.5 Ml Syringe) 0.5 mg IVP Q3HR PRN PRN Reason: Pain Hydromorphone HCl (Hydromorphone 1 Mg/Ml 1 Ml Syringe) 1 mg IVP Q3HR PRN PRN Reason: Pain Scale 6 to 10 Last Admin: 11/27/21 23:19 Dose: 1 mg Insulin Aspart (Insulin Aspart (Novolog) 100 Unit/Ml Vial) 0 unit SQ ACHS [facility]; Protocol Last Admin: 11/30/21 07:53 Dose: 2 unit Insulin Detemir (Insulin Detemir (Levemir) 100 Unit/Ml Syr) 60 unit SQ HS [facility] Last Admin: 11/29/21 22:05 Dose: 60 unit Levothyroxine Sodium (Levothyroxine 50 Mcg Tab) 50 mcg PO DAILY@0630 [facility] Last Admin: 11/30/21 05:59 Dose: 50 mcg Lidocaine HCl (Lidocaine 1% (10mg/Ml) For Iv Start) 0.1 ml INTRADERMA PER PROTOCOL PRN PRN Reason: IV Start Stop: 12/27/21 05:41 Losartan Potassium (Losartan 50 Mg Tab) 100 mg PO DAILY [facility] Last Admin: 11/30/21 07:52 Dose: 100 mg Ondansetron HCl (Ondansetron 4 Mg/2 Ml Vial) 4 mg IVP Q8HR PRN PRN Reason: Nausea And Vomiting Potassium Chloride (Potassium Chloride Er 10 Meq Tab.Er.Prt) 10 meq PO BID [facility] Last Admin: 11/30/21 07:53 Dose: 10 meq Past medical history to include: Diabetes, hypertension, hyperlipidemia, hypothyroid, gout, osteoarthritis, bilateral kidney stones. Social history: Patient lives with his ex-. No smoking, no alcohol. 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 Physical examination: VITAL SIGNS: 98.4, 57, 18, 151/73, 96% room air GENERAL:, Sitting up in a chair, comfortable EYES: Pupils equal. Conjunctiva normal. HEENT: External appearance of nose and ears normal, oral cavity grossly normal. NECK: JVD not raised; masses not palpable. HEART: First and second heart sounds are normal; no edema. LUNGS: Respiratory rate normal; clear to auscultation. ABDOMEN: Soft, nontender, liver spleen not palpable, no masses palpable. PSYCH: Alert and oriented x3; mood and affect normal. MUSCULOSKELETAL:No Clubbing/cyanosis;muscles-grossly intact, evidence of OA. Dressing over the right knee. INVESTIGATIONS, reviewed in the clinical context: WBC 7.9 hemoglobin 11.7 platelets 170, potassium 4.1, BUN 28, creatinine 1.43 Accu-Cheks noted. Assessment and plan: -Right total knee arthroplasty. Aspirin for DVT prophylaxis. Pain control. -Primary osteomyelitis multiple joints bilaterally Pain control. -Diabetes mellitus type 2 chronically on insulin. Accu-Cheks with sliding scale. -Acute postprocedure blood loss anemia as suspected from surgery Start ferrous sulfate -Essential hypertension Atenolol, amlodipine, losartan. 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 Fluid restrict 2000 mL a day. -Hyperlipidemia Lipitor 40 mg a -Diabetic peripheral neuropathy Neurontin 400 mg twice a day. -Obesity BMI 41.2 Weight loss measures Lasix has been discontinued. Fluid restriction 1800 mL a day. Discussed with patient. Pending authorization to go to rehab. Thank you Dr. Montalvo
[2021-11-30 17:01] LABS: Glucose,Whole Blood 268 mg/dL (70-110)
[2021-11-30] MEDS ORDERED: TAMSULOSIN 0.4 MG CAP.ER.24H PO SCH (18:30)
[2021-11-30 20:41] LABS: Glucose,Whole Blood 290 mg/dL (70-110)
[2021-11-30] MEDS: ASPIRIN 325 MG TAB PO SCH (22:39)
[2021-11-30] MEDS: INSULIN DETEMIR (LEVEMIR) 100 UNIT/ML SYR SQ SCH (22:39)
[2021-11-30] MEDS: atenoloL 25 MG TAB PO SCH (22:40)
--- NOTE | 2021-12-01 00:23 | US ---
EXAMINATION TYPE: US venous doppler duplex LE RT DATE OF EXAM: 11/30/2021 11:11 PM COMPARISON: NONE CLINICAL HISTORY: DVT. patient had knee replaced 3 days ago and feels "throbbing" SIDE PERFORMED: Right TECHNIQUE: The lower extremity deep venous system is examined utilizing real time linear array sonog brittany with graded compression, doppler sonography and color-flow sonography. VESSELS IMAGED: Common Femoral Vein Deep Femoral Vein Greater Saphenous Vein * Femoral Vein Popliteal Vein Small Saphenous Vein * Proximal Calf Veins (* superficial vessels) Right Leg: Negative for DVT IMPRESSION: No evidence of deep vein thrombosis in the right leg.
[2021-12-01 02:36] VITALS: PULSE 56
[2021-12-01] MEDS: LEVOTHYROXINE 50 MCG TAB PO SCH (06:13)
[2021-12-01 07:36] LABS: Glucose,Whole Blood 145 mg/dL (70-110)
[2021-12-01] MEDS: INSULIN ASPART (NovoLOG) 100 UNIT/ML VIAL SQ SCH (07:39)
[2021-12-01 07:56] VITALS: BP 120/67; TEMP 97.9
[2021-12-01] MEDS: POTASSIUM CHLORIDE ER 10 MEQ TAB.ER.PRT PO SCH (07:57)
[2021-12-01] MEDS: ATORVASTATIN 40 MG TAB PO SCH (07:57)
[2021-12-01] MEDS: allopurinoL 300 MG TAB PO SCH (07:57)
[2021-12-01] MEDS: FENOFIBRATE 160 MG TAB PO SCH (07:57)
[2021-12-01] MEDS: ASPIRIN 325 MG TAB PO SCH (07:57)
[2021-12-01] MEDS: HYDROcodone/APAP 7.5-325MG 1 EACH TAB PO PRN (07:57)
[2021-12-01] MEDS: GABAPENTIN 400 MG CAP PO SCH (07:57)
[2021-12-01] MEDS: LOSARTAN 50 MG TAB PO SCH (07:57)
[2021-12-01] MEDS: ASCORBIC ACID 500 MG TAB PO SCH (07:59)
[2021-12-01] MEDS: amLODIPine 5 MG TAB PO SCH (07:59)
[2021-12-01 10:49] VITALS: RESP 17
--- NOTE | 2021-12-01 11:13 | P.DS ---
Providers Date of admission: 11/27/2021 Expected date of discharge: 12/01/21 Attending physician: Emanuel Montalvo Consults: 11/27/21 21:39 Consult Physician Routine Consulting Provider: Daniel Kovacs Consult Reason/Comments: Medical Management Do you want consulting provider notified?: Yes Primary care physician: Dave Austin - Discharge Diagnosis(es) (1) Hypertension Status: Acute (2) Hyperlipidemia Status: Acute (3) Type 2 diabetes mellitus Status: Acute (4) Obesity Status: Acute (5) Right knee pain Status: Acute (6) Primary osteoarthritis of right knee Status: Acute (7) Status post total right knee replacement Status: Acute Hospital Course: This is a pleasant 76-year-old male who presented with right knee osteoarthritis who failed outpatient conservative therapy. He was admitted for a right total knee arthroplasty. The patient tolerated the procedure well and did well postoperatively. He has some soreness at his right knee but his pain is well- controlled. He was able to shower this morning. He feels he is ready for discharge today. His discharge had been pending authorization by his insurance. Insurance authorization has been approved today. He is clear for discharge to [facility]. Condition on day of discharge stable. Patient will be discharged to [facility]. Patient was cleared preoperatively for surgery by Dr. Austin. Patient currently denies any nausea, vomiting, fever, or chills. Patient is eating and voiding freely without difficulty. He is passing lots of gas. He denies any abdominal pain. Patient may shower Optifoam dressing intact over the right knee. Patient may remove Optifoam dressing in 7 days and shower without a dressing at that time. Patient should refrain from driving until at least after their first follow-up appointment in the office. Patient may weight-bear as tolerated with the assistance of a walker. Patient may continue with compression stockings during the day until his follow-up appointment in a remove the stockings at night. [facility] has previously been reviewed. An "Opiod Start Talking" Form has been signed and placed in the patient's chart. A prescription has been written for hydrocodone 7.5 mg/325 mg 1-2 tabs every 6 hours as needed for pain, dispensed #32. Patient is also given prescriptions for Celebrex, Neurontin, Senokot, Flomax, and Zofran. Patient may take his medications as prescribed as needed. Patient is given a prescription for aspirin 325 mg, take 1 tablet twice a day, dispensed #60. He should take this prescription until completion. Patient's other medical diagnoses include hypertension, hyperlipidemia, obesity, and diabetes type 2. Physical Exam Total Knee Arthroplasty: Status post surgical day number 4 Patient is awake, alert, and oriented 3 Vital signs stable Good chest excursion with deep inspiration and expiration Distended but soft nontender No signs or symptoms of DVT; no calf pain Dressing of the right knee is clean, dry, and intact; no erythema, purulence, or signs of infection Patient has full foot and ankle motion without difficulty bilateral lower extremities Dorsiflexion, plantar flexion, and extensor hallucis longus positive sustained bilaterally Neurovascular status right lower extremity intact Procedures: Right total knee arthroplasty Patient Condition at Discharge: Stable Plan - Discharge Summary Discharge Rx Participant: No New Discharge Prescriptions: New Celecoxib [CeleBREX] 200 mg PO DAILY #30 capsule Sennosides-Docusate Sodium [Senokot-S] 1 tab PO BID #60 tablet Tamsulosin HCl [Flomax] 0.4 mg PO HS #1 capsule Gabapentin [Neurontin] 400 mg PO BID PRN #6 cap PRN Reason: Pain Aspirin 325 mg PO BID #60 tab HYDROcodone/APAP 7.5-325MG [[place] 7.5-325] 1 - 2 tab PO Q6HR PRN #32 tab PRN Reason: Pain Ondansetron Odt [Zofran Odt] 4 mg PO Q8HR PRN #14 tab PRN Reason: Nausea Continue Ascorbic Acid [Vitamin C] 500 mg PO DAILY Insulin Glargine,Hum.rec.anlog [Lantus Solostar Pen] 60 units SQ HS Fenofibrate 160 mg PO DAILY Atorvastatin Calcium [Lipitor] 40 mg PO DAILY Losartan Potassium 100 mg PO DAILY Insulin Aspart [NovoLOG Flexpen] 0 units SQ BID atenoloL 25 mg PO HS Levothyroxine Sodium [Synthroid] 50 mcg PO DAILY allopurinoL 300 mg PO DAILY amLODIPine [Norvasc] 5 mg PO DAILY Gabapentin [Neurontin] 400 mg PO BID #6 cap Discontinued Furosemide [Lasix] 60 mg PO DAILY traMADol HCL 50 mg PO DAILY PRN PRN Reason: Pain Potassium Chloride [K-Tab ER] 10 meq PO BID No Action Unk Garlic 1 tab PO DAILY Unk Fish Oil 1 tab PO DAILY Discharge Medication List Ascorbic Acid [Vitamin C] 500 mg PO DAILY 11/22/21 [History] Atorvastatin Calcium [Lipitor] 40 mg PO DAILY 11/22/21 [History] Fenofibrate 160 mg PO DAILY 11/22/21 [History] Insulin Aspart [NovoLOG Flexpen] 0 units SQ BID 11/22/21 [History] Insulin Glargine,Hum.rec.anlog [Lantus Solostar Pen] 60 units SQ HS 11/22/21 [History] Levothyroxine Sodium [Synthroid] 50 mcg PO DAILY 11/22/21 [History] Losartan Potassium 100 mg PO DAILY 11/22/21 [History] Unk Fish Oil 1 tab PO DAILY 11/22/21 [History] Unk Garlic 1 tab PO DAILY 11/22/21 [History] allopurinoL 300 mg PO DAILY 11/22/21 [History] amLODIPine [Norvasc] 5 mg PO DAILY 11/22/21 [History] atenoloL 25 mg PO HS 11/22/21 [History] Aspirin 325 mg PO BID #60 tab 11/28/21 [Rx] Celecoxib [CeleBREX] 200 mg PO DAILY #30 capsule 11/28/21 [Rx] Gabapentin [Neurontin] 400 mg PO BID #6 cap 11/28/21 [Rx] HYDROcodone/APAP 7.5-325MG [[place] 7.5-325] 1 - 2 tab PO Q6HR PRN #32 tab 11/28/21 [Rx] Ondansetron Odt [Zofran Odt] 4 mg PO Q8HR PRN #14 tab 11/28/21 [Rx] Sennosides-Docusate Sodium [Senokot-S] 1 tab PO BID #60 tablet 11/28/21 [Rx] Tamsulosin HCl [Flomax] 0.4 mg PO HS #1 capsule 11/30/21 [Rx] Gabapentin [Neurontin] 400 mg PO BID PRN #6 cap 12/01/21 [Rx] Follow up Appointment(s)/Referral(s): Dave Austin MD [Primary Care Provider] - 11/29/21 4:30 pm [facility], [NON-STAFF] - As Needed Emanuel Montalvo DO [Doctor of Osteopathic Medicine] - 12/07/21 2:45 am (With Darryl ) Activity/Diet/Wound Care/Special Instructions: Dressing to stay intact for 7 days and then may be removed by yourself or by home care. May shower with dressing intact. If dressing becomes saturated please remove. May bear weight as tolerated with walker. Please take aspirin 325mg twice daily for 30 days to help prevent blood clots. Please wear compression stockings during the day until follow up appointment. May remove at night. Please follow up with [facility] and call with any questions or concerns, . fluid restrict 1800 cc/day Discharge Disposition: TRANSFER TO SNF/ECF
[2021-12-01 11:31] LABS: Glucose,Whole Blood 216 mg/dL (70-110)
== END 2021-12-01 12:56 ==
LOC: OR 12:29 → 4SSUR 16:20 → OR 12-01 12:56
PROVIDERS: ATTEND Orthopaedic Surgery
DX: M17.0 Bilateral primary osteoarthritis of knee (principal); G89.18 Other acute postprocedural pain; E11.69 Type 2 diabetes mellitus with other specified complication; E78.5 Hyperlipidemia, unspecified; I12.9 Hypertensive chronic kidney disease with stage 1 through stage 4 chronic kidney disease, or unspecified chronic kidney disease; E11.22 Type 2 diabetes mellitus with diabetic chronic kidney disease; N18.9 Chronic kidney disease, unspecified; H91.90 Unspecified hearing loss, unspecified ear; Z79.82 Long term (current) use of aspirin; Z79.899 Other long term (current) drug therapy; Z79.4 Long term (current) use of insulin; Z79.890 Hormone replacement therapy; Z82.49 Family history of ischemic heart disease and other diseases of the circulatory system
CPT/HCPCS: 97161; 97166; 64999; 64448; 76942; 88300; 73560; 27447; C1776; J0690; J2405; J1650; J1170

== ENCOUNTER 2023-03-09 23:29 | Inpatient (IN) | payer MEDICARE ==
[2023-03-10] MEDS ORDERED: KETOROLAC 15 MG/ML 1 ML VIAL IVP STA (00:11)
[2023-03-10] MEDS ORDERED: SODIUM CHLORIDE 0.9% 500 ML 500 ML IV STA (00:11)
--- NOTE | 2023-03-10 00:14 | ED ---
Abdominal Pain HPI - General Chief Complaint: Abdominal Pain Stated Complaint: Flank pain Time Seen by Provider: 03/09/23 23:35 Source: patient, EMS Mode of arrival: EMS Limitations: no limitations - History of Present Illness Initial Comments: 77-year-old male with past medical history of diabetes, hypertension presents to the emergency department with some right-sided flank pain. States that he was at home when he had sudden onset of sharp shooting pain in his right flank. He states that it is worse with movement, palpation and deep breathing. He does have a history of kidney stones however states that this was greater than 20 years ago so cannot state whether the pain feels similar. He has no associated urinary complaints to include dysuria, hematuria or difficult voiding. No diarrhea, consultation, black or bloody stools. Daughter is at bedside and helps provide the history. States that the patient has had upper respiratory symptoms with shortness of breath since January 31. They have been seen in her primary care office close to 6 times for the patient's increased work of breathing. He does not require oxygen at home. He has been through 2 rounds of steroids and antibiotics for his breathing. He additionally was prescribed a nebulizer however he does not like completing the treatments. Throughout all of these measures the patient continues to have respiratory issues. Patient arrives to our facility and is diffusely wheezing. He has a pulse ox of 87% on room air. He is placed on oxygen. He denies any chest pain. No history of cardiac disease. No fevers. He has had several sick contacts. No other alleviating, precipitating or modifying factors - Related Data Home Medications Medication Instructions Recorded Confirmed Ascorbic Acid [Vitamin C] 500 mg PO DAILY 11/22/21 05/22/22 Atorvastatin Calcium [Lipitor] 40 mg PO DAILY 11/22/21 05/22/22 Fenofibrate 160 mg PO DAILY 11/22/21 05/22/22 Insulin Aspart [NovoLOG Flexpen] 0 units SQ BID PRN 11/22/21 05/22/22 Insulin Glargine,Hum.rec.anlog 70 units SQ HS 11/22/21 05/22/22 [Lantus Solostar Pen] Levothyroxine Sodium [Synthroid] 50 mcg PO DAILY 11/22/21 05/22/22 Losartan Potassium 100 mg PO DAILY 11/22/21 05/22/22 allopurinoL 300 mg PO DAILY 11/22/21 05/22/22 amLODIPine [Norvasc] 5 mg PO DAILY 11/22/21 05/22/22 atenoloL 25 mg PO HS 11/22/21 05/27/22 Cinnamon Bark [Cinnamon] 500 mg PO DAILY 05/22/22 05/22/22 Garlic 2,000 mg PO DAILY 05/22/22 05/22/22 Pollard-3 Fatty Acids/Fish Oil 1 each PO DAILY 05/22/22 05/22/22 [Pollard-3 Fish Oil 1,200 mg Sfgl] Previous Rx's Medication Instructions Recorded HYDROcodone/APAP 7.5-325MG [Wishram 1 - 2 tab PO Q6HR PRN #32 tab 11/28/21 7.5-325] Tamsulosin HCl [Flomax] 0.4 mg PO HS #1 capsule 11/30/21 Gabapentin [Neurontin] 400 mg PO BID PRN #6 cap 12/01/21 Aspirin 325 mg PO BID #60 tab 05/28/22 HYDROcodone/APAP 7.5-325MG [Wishram 1 - 2 tab PO Q6H PRN #32 tab 05/28/22 7.5-325] Sennosides [Senokot] 2 tab PO DAILY PRN #60 tablet 05/28/22 Ferrous Sulfate [Iron (65 MG 325 mg PO BID-W/MEALS tab 05/30/22 Elemental)] INSULIN ASPART (NovoLOG) [NovoLOG 0 unit SQ ACHS each 05/30/22 (formulary)] Allergies Allergy/AdvReac Type Severity Reaction Status Date / Time No Known Allergies Allergy Verified 05/28/22 11:28 Review of Systems ROS Statement: Those systems with pertinent positive or pertinent negative responses have been documented in the HPI. ROS Other: All systems not noted in ROS Statement are negative. Past Medical History Past Medical History: Diabetes Mellitus, Hearing Disorder / Deafness, Hyperlipidemia, Hypertension, Osteoarthritis (OA), Thyroid Disorder Additional Past Medical History / Comment(s): Gout, heart murmur all his life, painful knees bilaterally, hx kidney stones, hard of hearing. History of Any Multi-Drug Resistant Organisms: None Reported Past Surgical History: Appendectomy, Joint Replacement, Orthopedic Surgery, Tonsillectomy Additional Past Surgical History / Comment(s): 2 ganglion cysts removed from le ft wrist and one from right wrist, right elbow surgery, right shoulder surgery, lithotripsy, right knee replacement. Past Anesthesia/Blood Transfusion Reactions: No Reported Reaction Additional Past Anesthesia/Blood Transfusion Reaction / Comment(s): No blood transfusions. Past Psychological History: No Psychological Hx Reported Smoking Status: Never smoker Past Alcohol Use History: None Reported Past Drug Use History: None Reported - Past Family History Father Family Medical History: Myocardial Infarction (HI) Additional Family Medical History / Comment(s): CABG. Sister(s) Family Medical History: Pulmonary Embolus General Exam Limitations: no limitations General appearance: alert Head exam: Present: atraumatic, normocephalic, normal inspection Eye exam: Present: normal appearance, PERRL, EOMI. Absent: scleral icterus, conjunctival injection, periorbital swelling ENT exam: Present: normal exam, mucous membranes moist Neck exam: Present: normal inspection. Absent: tenderness, meningismus, lymphadenopathy Respiratory exam: Present: wheezes, accessory muscle use, other (Diffuse wheezes, conversational dyspnea) Cardiovascular Exam: Present: regular rate, normal rhythm, normal heart sounds. Absent: systolic murmur, diastolic murmur, rubs, gallop, clicks GI/Abdominal exam: Present: soft, distended Extremities exam: Present: normal inspection, full ROM, normal capillary refill. Absent: tenderness, pedal edema, joint swelling, calf tenderness Course Vital Signs 03/09/23 03/09/23 03/09/23 23:30 23:32 23:40 Temperature 98.9 F Pulse Rate 66 65 Respiratory 16 11 L Rate Blood Pressure 124/61 124/61 O2 Sat by Pulse 88 L 95 Oximetry 03/10/23 03/10/23 03/10/23 00:00 01:22 02:00 Temperature Pulse Rate 70 58 L 53 L Respiratory 14 16 19 Rate Blood Pressure 124/61 117/62 117/62 O2 Sat by Pulse 94 L 96 93 L Oximetry 03/10/23 03/10/23 03/10/23 03:00 04:00 04:23 Temperature Pulse Rate 48 L 58 L 52 L Respiratory 12 16 Rate Blood Pressure 104/47 95/45 O2 Sat by Pulse 96 96 Oximetry 03/10/23 03/10/23 04:33 05:00 Temperature Pulse Rate 53 L 57 L Respiratory 18 Rate Blood Pressure 96/43 O2 Sat by Pulse 97 Oximetry Medical Decision Making - Medical Decision Making Was pt. sent in by a medical professional or institution ([facility], [facility], urgent care, hospital, or fci...) When possible be specific @ -No Did you speak to anyone other than the patient for history (EMS, parent, family, police, friend...)? What history was obtained from this source @ -EMS and the daughter Did you review nursing and triage notes (agree or disagree)? Why? @ -I reviewed and agree with nursing and triage notes Were old charts reviewed (outside hosp., previous admission, EMS record, old EKG, old radiological studies, urgent care reports/EKG's, fci records)? Report findings @ -No old charts were reviewed Differential Diagnosis (chest pain, altered mental status, abdominal pain women, abdominal pain men, vaginal bleeding, weakness, fever, dyspnea, syncope, headache, dizziness, GI bleed, back pain, seizure, CVA, palpatations, mental health, musculoskeletal)? @ -Differential Dyspnea: Coronary syndrome, arrhythmia, tamponade, asthma, COPD, pulmonary embolism, pneumonia, pneumothorax, pulmonary effusion, anaphylaxis, diabetic ketoacidosis, flailed chest, pulmonary contusion, diaphragmatic rupture, anemia, neuromuscular, this is not meant to be an all-inclusive list. EKG interpreted by me (3pts min.). @ -Yes and demonstrates sinus rhythm with rate 63. GA interval 121. QRS 103. QTC 455. No acute ST segment elevations or depressions X-rays interpreted by me (1pt min.). @ -Yes and demonstrates cardiomegaly. Low lung volumes CT interpreted by me (1pt min.). @ -Yes and does not demonstrate reasoning for the patient's symptoms. No acute process U/S interpreted by me (1pt. min.). @ -None done What testing was considered but not performed or refused? (CT, X-rays, U/S, labs )? Why? @ -None What meds were considered but not given or refused? Why? @ -None Did you discuss the management of the patient with other professionals (professionals i.e. [facility], [facility], lab, RT, psych nurse, addiction social worker, world renowned chef and restaurant owner, teacher, information assurance officer, case making machine operator)? Give summary @ -Spoke with sheet for admission Was smoking cessation discussed for >3mins.? @ -No Was critical care preformed (if so, how long)? @ -No Were there social determinants of health that impacted care today? How? (Homelessness, low income, unemployed, alcoholism, drug addiction, transportation, low edu. Level, literacy, decrease access to med. care, [facility], rehab)? @ -No Was there de-escalation of care discussed even if they declined (Discuss DNR or withdrawal of care, Hospice)? DNR status @ -No What co-morbidities impacted this encounter? (DM, HTN, Smoking, COPD, CAD, Cancer, CVA, ARF, Chemo, Hep., AIDS, mental health diagnosis, sleep apnea, m orbid obesity)? @ -Obesity Was patient admitted / discharged? Hospital course, mention meds given and route, prescriptions, significant lab abnormalities, going to OR and other pertinent info. @ -Upon arrival patient was placed into room 9. A thorough history and physical exam was performed. IV was established. Laboratory studies are con ducted. Patient was given a dose of Toradol for pain control. Laboratory studies are reviewed. Patient does have chronic renal insufficiency. Remaining labs within normal limits. Chest x-ray demonstrates cardiomegaly. CT of abdomen and pelvis does not account for the patient's flank pain. Patient's is diffusely wheezy and therefore he did receive a DuoNeb breathing treatment, 125 of Solu-Medrol. Blood cultures are obtained and the patient was given a dose of IV antibiotics. Due to his hypoxia I did recommend admission. Patient was agreeable to this. I spoke with Dr. portillo to agree to admit the patient. Echo was ordered. Patient is awaiting a bed on the floor in stable condition Undiagnosed new problem with uncertain prognosis? @ -Yes Drug Therapy requiring intensive monitoring for toxicity (Heparin, Nitro, Insulin, Cardizem)? @ -No Were any procedures done? @ -No Diagnosis/symptom? @ -Acute respiratory insufficiency, acute hypoxia, possible reactive airway disease Acute, or Chronic, or Acute on Chronic? @ -Acute Uncomplicated (without systemic symptoms) or Complicated (systemic symptoms)? @ -Complicated Side effects of treatment? @ -No Exacerbation, Progression, or Severe Exacerbation? @ -No Poses a threat to life or bodily function? How? (Chest pain, USA, HI, pneumonia, PE, COPD, DKA, ARF, appy, cholecystitis, CVA, Diverticulitis, Homicidal, Suicidal, threat to staff... and all critical care pts) @ -Possibly as patient does have increased work of breathing - Lab Data Result diagrams: 03/10/23 00:18 03/10/23 00:18 Lab Results 03/10/23 03/10/23 03/10/23 Range/Units 00:18 00:18 00:18 WBC 7.1 (3.8-10.6) k/uL RBC 4.51 (4.30-5.90) m/uL Hgb 13.4 (13.0-17.5) gm/dL Hct 41.6 (39.0-53.0) % MCV 92.3 (80.0-100.0) fL MCH 29.7 (25.0-35.0) pg MCHC 32.2 (31.0-37.0) g/dL RDW 15.2 (11.5-15.5) % Plt Count 181 (150-450) k/uL MPV 7.5 Neutrophils % 47 % Lymphocytes % 35 % Monocytes % 8 % Eosinophils % 6 % Basophils % 1 % Neutrophils # 3.3 (1.3-7.7) k/uL Lymphocytes # 2.5 (1.0-4.8) k/uL Monocytes # 0.6 (0-1.0) k/uL Eosinophils # 0.4 (0-0.7) k/uL Basophils # 0.0 (0-0.2) k/uL PT 10.5 (10.0-12.5) sec INR 1.0 (<1.2) Sodium 135 L (137-145) mmol/L Potassium 4.6 (3.5-5.1) mmol/L Chloride 99 (98-107) mmol/L Carbon Dioxide 25 (22-30) mmol/L Anion Gap 11 mmol/L BUN 45 H (9-20) mg/dL Creatinine 2.03 H (0.66-1.25) mg/dL Est GFR (CKD-EPI)AfAm 36 (>60 ml/min/1.73 sqM) Est GFR (CKD-EPI)NonAf 31 (>60 ml/min/1.73 sqM) Glucose 264 H (74-99) mg/dL Plasma Lactic Acid Nj (0.7-2.0) mmol/L Calcium 9.3 (8.4-10.2) mg/dL Total Bilirubin 0.8 (0.2-1.3) mg/dL AST 33 (17-59) U/L ALT 27 (4-49) U/L Alkaline Phosphatase 57 (38-126) U/L Troponin I (0.000-0.034) ng/mL NT-Pro-B Natriuret Pep 87 pg/mL Total Protein 6.9 (6.3-8.2) g/dL Albumin 4.0 (3.5-5.0) g/dL Lipase 175 (23-300) U/L Influenza Type A (PCR) (Not Detectd) Influenza Type B (PCR) (Not Detectd) RSV (PCR) (Not Detectd) SARS-CoV-2 (PCR) (Not Detectd) 03/10/23 03/10/23 03/10/23 Range/Units 00:18 00:18 00:18 WBC (3.8-10.6) k/uL RBC (4.30-5.90) m/uL Hgb (13.0-17.5) gm/dL Hct (39.0-53.0) % MCV (80.0-100.0) fL MCH (25.0-35.0) pg MCHC (31.0-37.0) g/dL RDW (11.5-15.5) % Plt Count (150-450) k/uL MPV Neutrophils % % Lymphocytes % % Monocytes % % Eosinophils % % Basophils % % Neutrophils # (1.3-7.7) k/uL Lymphocytes # (1.0-4.8) k/uL Monocytes # (0-1.0) k/uL Eosinophils # (0-0.7) k/uL Basophils # (0-0.2) k/uL PT (10.0-12.5) sec INR (<1.2) Sodium (137-145) mmol/L Potassium (3.5-5.1) mmol/L Chloride (98-107) mmol/L Carbon Dioxide (22-30) mmol/L Anion Gap mmol/L BUN (9-20) mg/dL Creatinine (0.66-1.25) mg/dL Est GFR (CKD-EPI)AfAm (>60 ml/min/1.73 sqM) Est GFR (CKD-EPI)NonAf (>60 ml/min/1.73 sqM) Glucose (74-99) mg/dL Plasma Lactic Acid Nj 1.5 (0.7-2.0) mmol/L Calcium (8.4-10.2) mg/dL Total Bilirubin (0.2-1.3) mg/dL AST (17-59) U/L ALT (4-49) U/L Alkaline Phosphatase (38-126) U/L Troponin I 0.012 (0.000-0.034) ng/mL NT-Pro-B Natriuret Pep pg/mL Total Protein (6.3-8.2) g/dL Albumin (3.5-5.0) g/dL Lipase (23-300) U/L Influenza Type A (PCR) Not Detected (Not Detectd) Influenza Type B (PCR) Not Detected (Not Detectd) RSV (PCR) Not Detected (Not Detectd) SARS-CoV-2 (PCR) Not Detected (Not Detectd) Disposition Clinical Impression: Hypoxia, Cough, Flank pain Disposition: ADMITTED IP TO THIS HOSP Condition: Stable Is patient prescribed a controlled substance at d/c from ED?: No Time of Disposition: 03:56 Decision to Admit Reason: Admit from EC Decision Date: 03/10/23 Decision Time: 03:56
[2023-03-10 00:55] LABS: Basophils % (A) 1 %; Eosinophils # (A) 0.4 k/uL (0-0.7); Eosinophils % (A) 6 %; HCT 41.6 % (39.0-53.0); HGB 13.4 gm/dL (13.0-17.5); Lymphocytes # (A) 2.5 k/uL (1.0-4.8); Lymphocytes % (A) 35 %; MCH 29.7 pg (25.0-35.0); MCHC 32.2 g/dL (31.0-37.0); MCV 92.3 fL (80.0-100.0); Mean Platelet Volume 7.5; Monocytes # (A) 0.6 k/uL (0-1.0); Monocytes % (A) 8 %; Neutrophils # (A) 3.3 k/uL (1.3-7.7); Neutrophils % (A) 47 %; Platelet Count 181 k/uL (150-450); RBC 4.51 m/uL (4.30-5.90); RDW 15.2 % (11.5-15.5); WBC 7.1 k/uL (3.8-10.6)
[2023-03-10 01:03] LABS: Prothrombin Time 10.5 sec (10.0-12.5)
[2023-03-10 01:11] LABS: ALT 27 U/L (4-49); AST 33 U/L (17-59); African American GFR (CKD) 36 (>60 ml/min/1.73 sqM); Alkaline Phosphatase 57 U/L (38-126); Anion Gap 11 mmol/L; Blood Urea Nitrogen 45 mg/dL (9-20); Calcium 9.3 mg/dL (8.4-10.2); Carbon Dioxide 25 mmol/L (22-30); Chloride 99 mmol/L (98-107); Glucose 264 mg/dL (74-99); Lipase 175 U/L (23-300); Non-African American GFR(CKD) 31 (>60 ml/min/1.73 sqM); Potassium 4.6 mmol/L (3.5-5.1); Sodium 135 mmol/L (137-145); Total Bilirubin 0.8 mg/dL (0.2-1.3); Total Protein 6.9 g/dL (6.3-8.2)
[2023-03-10 01:19] LABS: NT-Pro-B-Type Natriuretic Pept 87 pg/mL
[2023-03-10] MEDS ORDERED: NALOXONE 0.4 MG/ML 1 ML VIAL IV PRN (03:56)
[2023-03-10] MEDS ORDERED: methylPREDNISolone SOD SUCCI 125 MG/2 ML VIAL IV STA (03:59)
[2023-03-10] MEDS ORDERED: IPRATROPIUM-ALBUTEROL 3 ML NEB INHALATION STA (03:59)
[2023-03-10] MEDS ORDERED: IPRATROPIUM-ALBUTEROL 3 ML NEB INHALATION SCH (04:00)
[2023-03-10] MEDS ORDERED: cefTRIAXone IN SWFI 1,000 MG/10 ML SYRINGE IVP STA (04:02)
[2023-03-10] MEDS ORDERED: AZITHROMYCIN 500 MG in SODIUM CHLORIDE 0.9% 250 ML IVPB STA (04:04)
[2023-03-10] MEDS ORDERED: IPRATROPIUM-ALBUTEROL 3 ML NEB INHALATION PRN (04:23)
--- NOTE | 2023-03-10 04:35 | CT ---
EXAM: CT Abdomen and Pelvis Without Intravenous Contrast CLINICAL HISTORY: Abdominal pain TECHNIQUE: Axial computed tomography images of the abdomen and pelvis without intravenous contrast. CTDI is 26.6 mGy and DLP is 1739 mGy-cm. This CT exam was performed using one or more of the following dose reduction techniques: automated exposure control, adjustment of the mA and/or kV according to patient size, and/or use of iterative reconstruction technique. COMPARISON: Renal ultrasound 04/07/2019. FINDINGS: Lung bases: Cardiomegaly. Mitral valve and coronary artery calcifications. Bibasilar atelectasis. ABDOMEN: Liver: Enlarged 23.7 cm length. Gallbladder and bile ducts: Unremarkable. No calcified stones. No ductal dilation. Pancreas: Partially fatty replaced. No ductal dilation. Spleen: Unremarkable. No splenomegaly. Adrenals: 3.2 cm diameter fat-containing right adrenal mass. No mass. Kidneys and ureters: Multiple simple and complex cysts in the upper pole left kidney with a small peripheral calcification. Largest cyst measures 5.3 cm diameter. Multiple nonobstructing left renal calculi. No obstructing calculus. No hydronephrosis or hydroureter. Stomach and bowel: No obstruction or ileus. Scattered sigmoid colon diverticuli without evidence for diverticulitis. PELVIS: Appendix: No findings to suggest acute appendicitis. Bladder: Partially contracted with minimal wall thickening. No stones. Reproductive: Enlarged prostate gland 6.2 x 4.8 cm. ABDOMEN and PELVIS: Intraperitoneal space: No free air. No free fluid. Bones/joints: No acute fracture. Degenerative changes of the spine. Soft tissues: Unremarkable. Vasculature: Atherosclerotic vascular calcifications. No abdominal aortic aneurysm. Lymph nodes: Unremarkable. No enlarged lymph nodes. IMPRESSION: No bowel obstruction or ileus. Scattered sigmoid colon diverticuli without evidence for diverticulitis. No obstructive uropathy. Nonobstructing left renal calculi. Complex left renal cyst in the small peripheral calcification. Correlation with contrast-enhanced examination is recommended when clinically appropriate. Hepatomegaly. Fatty replaced pancreas. Enlarged prostate gland. Senescent changes.
--- NOTE | 2023-03-10 04:37 | XR ---
EXAM: XR Chest, 2 Views CLINICAL HISTORY: Abdominal pain TECHNIQUE: Frontal and lateral views of the chest. COMPARISON: CT abdomen 03/10/2023. FINDINGS: Heart is enlarged. Bibasilar atelectasis. Pulmonary vessels are top normal in caliber. No pleural effusion or pneumothorax. Degenerative changes of the thoracic spine and shoulders. IMPRESSION: Cardiomegaly. Bibasilar atelectasis. Pulmonary vessels top normal in caliber.
[2023-03-10] MEDS: SODIUM CHLORIDE 0.9% 1,000 ML IV SCH ×2 (04:47→19:25)
[2023-03-10 05:33] LABS: Appearance,Urine Clear (Clear); Bilirubin,Urine Negative (Negative); Blood,Urine Negative (Negative); Color,Urine Colorless; Glucose,Urine (UA) 4+ (Negative); Ketones,Urine Negative (Negative); Leukocyte Esterase,Urine Negative (Negative); Nitrite,Urine Negative (Negative); Protein,Urine Negative (Negative); Specific Gravity,Urine 1.025 (1.001-1.035); Urobilinogen,Urine <2.0 mg/dL (<2.0)
[2023-03-10] MEDS: guaiFENesin-DM 100-10MG/5ML 10 ML CUP PO SCH ×4 (06:21→21:20)
--- NOTE | 2023-03-10 06:33 | P.CNPUL ---
History of Present Illness Consult date: 03/10/23 Requesting physician: Nubia Pisano Reason for consult: dyspnea, cough Chief complaint: Right flank pain History of present illness: I am seeing this patient in new consultation today 03/10/2023 in the emergency room after he presented with severe right-sided flank pain earlier this morning. Patient is a 77-year-old male with multiple medical comorbidities including hypertension, hyperlipidemia, diabetes, chronic kidney disease, obesity, hypothyroidism, among other things. His new primary care provider is Dr. Esposito. He recently moved to [place] approximately 2 months ago. Loy hendrickson's right flank pain started late last night. Described as sharp/stabbing, and rated 10 out of 10. It was persistent, however, has subsided with toradol, which was given in the ER. He denies any urinary complaints such as dysuria, hematuria. He does void often, after he takes his Lasix. He denies any nausea, vomiting, diarrhea, constipation, bloody or black stools. CT of abdomen and pelvis on arrival did not show any obstruction or ileus. There were scattered diverticuli without evidence of diverticulitis. No obstructive uropathy/hydronephrosis. There are multiple nonobstructive left renal calculi. Multiple simple and complex left renal cysts. There is hepatomegaly, large prostate and other benign findings. We are consulted because the patient was found to be hypoxic while in the emergency room and required supplemental oxygen. He has had an ongoing cough and shortness of breath over the last month. Cough is mostly non-productive with occasional clear sputum. Denies fevers, hemoptysis. He has been treated outpatient on three occasions with oral steroids and antibiotics. He states he initially has improvement, but symptoms worsened after tapering his steroids. He also has a nebulizer at home, and has been taking albuterol treatments 3 times a day. He denies any history of pulmonary disease such as COPD or asthma. He has smoked occasional recreational marijuana in the past, denies any previous tobacco use. 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 Patient is currently sitting up in bed, on 3 L/m nasal cannula, in no acute distress. He does not wear oxygen normally. Chest x-ray demonstrates cardiomegaly, pulmonary vessels within the upper limits of normal, no pleural effusions or pneumothorax. There is bibasilar atelectasis. No focal infiltrates or evidence of pneumonia. CBC was unremarkable. No leukocytosis. BMP shows a sodium of 135, potassium 4.6, chloride 99, serum bicarb 25, BUN 45, creatinine 2.03, glucose 264. Troponin 0.012. NT proBNP not elevated. Urinalysis are consistent with UTI. No hematuria or protein. Negative for influenza, RSV, COVID-19. Afebrile. Vital signs are stable. Review of Systems REVIEW OF SYSTEMS: CONSTITUTIONAL: Denies any recent significant weight loss or weight gain. EYES: Denies change in vision. EARS, NOSE, MOUTH, THROAT: Denies headaches, denies sore throat. CARDIOVASCULAR: Denies chest pain, palpitations or syncopal episodes. RESPIRATORY: See HPI GASTROINTESTINAL: Denies change in appetite, abdominal pain, nausea and vomiting, or diarrhea GENITOURINARY: Denies hematuria, denies infections. MUSKULOSKELETAL: Denies pain, denies swelling. Admits right flank pain as described in HPI INTEGUMENTARY: Denies rash, denies eczema. NEUROLOGICAL: Denies recent memory loss, no recent seizure activity. PSYCHIATRIC: Denies anxiety, denies depression. HEMATOLOGIC/LYMPHATIC: Denies anemia, denies enlarged lymph node Past Medical History Past Medical History: Diabetes Mellitus, Hearing Disorder / Deafness, Hyperlipidemia, Hypertension, Osteoarthritis (OA), Thyroid Disorder Additional Past Medical History / Comment(s): Gout, heart murmur all his life, painful knees bilaterally, hx kidney stones, hard of hearing. History of Any Multi-Drug Resistant Organisms: None Reported Past Surgical History: Appendectomy, Joint Replacement, Orthopedic Surgery, Tonsillectomy Additional Past Surgical History / Comment(s): 2 ganglion cysts removed from left wrist and one from right wrist, right elbow surgery, right shoulder surgery, lithotripsy, right knee replacement. Past Anesthesia/Blood Transfusion Reactions: No Reported Reaction Additional Past Anesthesia/Blood Transfusion Reaction / Comment(s): No blood transfusions. Past Psychological History: No Psychological Hx Reported Smoking Status: Never smoker Past Alcohol Use History: None Reported Past Drug Use History: None Reported - Past Family History Father Family Medical History: Myocardial Infarction (DC) Additional Family Medical History / Comment(s): CABG. Sister(s) Family Medical History: Pulmonary Embolus Medications and Allergies Home Medications Medication Instructions Recorded Confirmed Type Ascorbic Acid [Vitamin C] 500 mg PO DAILY 11/22/21 05/22/22 History Atorvastatin Calcium [Lipitor] 40 mg PO DAILY 11/22/21 05/22/22 History Fenofibrate 160 mg PO DAILY 11/22/21 05/22/22 History Insulin Aspart [NovoLOG Flexpen] 0 units SQ BID PRN 11/22/21 05/22/22 History Insulin Glargine,Hum.rec.anlog 70 units SQ HS 11/22/21 05/22/22 History [Lantus Solostar Pen] Levothyroxine Sodium [Synthroid] 50 mcg PO DAILY 11/22/21 05/22/22 History Losartan Potassium 100 mg PO DAILY 11/22/21 05/22/22 History allopurinoL 300 mg PO DAILY 11/22/21 05/22/22 History amLODIPine [Norvasc] 5 mg PO DAILY 11/22/21 05/22/22 History atenoloL 25 mg PO HS 11/22/21 05/27/22 History HYDROcodone/APAP 7.5-325MG [[place] 1 - 2 tab PO Q6HR PRN #32 tab 11/28/21 05/22/22 Rx 7.5-325] Tamsulosin HCl [Flomax] 0.4 mg PO HS #1 capsule 11/30/21 05/22/22 Rx Gabapentin [Neurontin] 400 mg PO BID PRN #6 cap 12/01/21 05/22/22 Rx Cinnamon Bark [Cinnamon] 500 mg PO DAILY 05/22/22 05/22/22 History Garlic 2,000 mg PO DAILY 05/22/22 05/22/22 History [place]-3 Fatty Acids/Fish Oil 1 each PO DAILY 05/22/22 05/22/22 History [[place]-3 Fish Oil 1,200 mg Sfgl] Aspirin 325 mg PO BID #60 tab 05/28/22 Rx HYDROcodone/APAP 7.5-325MG [[place] 1 - 2 tab PO Q6H PRN #32 tab 05/28/22 Rx 7.5-325] Sennosides [Senokot] 2 tab PO DAILY PRN #60 tablet 05/28/22 Rx Ferrous Sulfate [Iron (65 MG 325 mg PO BID-W/MEALS tab 05/30/22 Rx Elemental)] INSULIN ASPART (NovoLOG) [NovoLOG 0 unit SQ ACHS each 05/30/22 Rx (formulary)] Allergies Allergy/AdvReac Type Severity Reaction Status Date / Time No Known Allergies Allergy Verified 05/28/22 11:28 Physical Exam Vitals: Vital Signs Temp Pulse Resp BP Pulse Ox 03/10/23 05:00 57 L 18 96/43 97 03/10/23 04:33 53 L 03/10/23 04:23 52 L 03/10/23 04:00 58 L 16 95/45 96 03/10/23 03:00 48 L 12 104/47 96 03/10/23 02:00 53 L 19 117/62 93 L 03/10/23 01:22 58 L 16 117/62 96 03/10/23 00:00 70 14 124/61 94 L 03/09/23 23:40 95 03/09/23 23:32 65 11 L 124/61 03/09/23 23:30 98.9 F 66 16 124/61 88 L Intake and Output 03/09/23 03/09/23 03/10/23 14:59 22:59 06:59 Other: Weight 129.274 kg GENERAL EXAM: Alert, 77-year-old obese white male, comfortable in no apparent distress. HEAD: Normocephalic and atraumatic EYES: Normal reaction of pupils, equal size. NOSE: Clear with pink turbinates. THROAT: No erythema or exudates. NECK: No masses, no JVD. CHEST: No chest wall deformity. LUNGS: Equal air entry with scattered expiratory wheezes. On 3 L/m nasal cannula. He does have a dry nagging cough. No conversational dyspnea or accessory muscle use.. CVS: S1 and S2 normal with grade 2 systolic murmur, regular rhythm. No extra heart sounds ABDOMEN: No hepatosplenomegaly, active bowel sounds, no guarding or rigidity. SPINE: No scoliosis or deformity. No CVA tenderness. SKIN: No rashes CENTRAL NERVOUS SYSTEM: No focal deficits, tone is normal in all 4 extremities. EXTREMITIES: There is 1-2+ pitting edema in the bilateral lower extremities. No clubbing, or cyanosis. Peripheral pulses are intact. Results - Laboratory Findings CBC and BMP: 03/10/23 00:18 03/10/23 00:18 PT/INR, D-dimer PT 10.5 sec (10.0-12.5) 03/10/23 00:18 INR 1.0 (<1.2) 03/10/23 00:18 Abnormal lab findings: Abnormal Labs 03/10/23 03/10/23 00:18 00:18 Sodium 135 L BUN 45 H Creatinine 2.03 H Glucose 264 H Urine Glucose (UA) 4+ H - Diagnostic Findings Chest x-ray: image reviewed Assessment and Plan Assessment: Acute hypoxemic respiratory failure, currently on 3 L/m nasal cannula and s uspected acute bronchitis, chest x-ray shows no focal infiltrates or evidence of pneumonia. Negative for influenza, RSV, COVID-19. Right flank pain, CT of the abdomen does not show any acute intra-abdominal process. No obstruction or ileus. No obstructive uropathy. Hyperlipidemia Hypertension Diabetes mellitus, insulin-dependent History of diabetic neuropathy Chronic kidney disease stage III Hypothyroidism Morbid obesity, with a BMI of 40.9 kg/m Plan: Patient's medications, labs, chest x-ray reviewed Continue supportive therapy including IV steroids, antitussives medications, and bronchodilators. Continue supplemental oxygen. Negative for influenza, RSV, COVID-19. Patient did receive single empiric doses of azithromycin and Rocephin in the emergency room. He is afebrile. We will continue to follow, and further recommendations are forthcoming. I have personally seen and examined the patient, performed the documentation and the assessment and plan as written. Number of minutes spent on the visit:20 Time with Patient: Greater than 30
[2023-03-10] MEDS ORDERED: methylPREDNISolone SOD SUCCI 40 MG/ML 1 ML VIAL IV SCH (08:00)
[2023-03-10] MEDS: IPRATROPIUM-ALBUTEROL 3 ML NEB INHALATION SCH ×4 (08:48→20:41)
[2023-03-10] MEDS: methylPREDNISolone SOD SUCCI 125 MG/2 ML VIAL IV SCH ×3 (12:17→23:40)
--- NOTE | 2023-03-10 12:38 | P.HPIM ---
History of Present Illness Male came in with Severe right-sided flank pain which completely resolved at this time patient pain was a crampy in nature 12/31. CT of the abdomen did not show any significant abnormality patient may have passed a gallstone urease not significant abnormal either. Although patient was admitted for bronchitis and the patient is currently requiring 3 L of oxygen saturating at 92% patient does have expiratory wheezing on exam patient is obese does have history of sleep apnea. Patient denied any history of can start failure does use Lasix at home with elevated creatinine of 2 baseline around 1.4 patient takes Lasix for peripheral edema.. ProBNP is not elevated. He is negative for influenza, RSV, COVID-19 patient is not febrile doesn't have leukocytosis. She does have a cough without any significant sputum production REVIEW OF SYSTEMS: CONSTITUTIONAL: No fever, no malaise, no fatigue. HEENT: No recent visual problems or hearing problems. Denied any sore throat. CARDIOVASCULAR: No chest pain, orthopnea, PND, no palpitations, no syncope. PULMONARY: no hemoptysis. GASTROINTESTINAL: No diarrhea, no nausea, no vomiting, no abdominal pain. NEUROLOGICAL: No headaches, no weakness, no numbness. HEMATOLOGICAL: Denies any bleeding or petechiae. GENITOURINARY: Denies any burning micturition, frequency, or urgency. MUSCULOSKELETAL/RHEUMATOLOGICAL: Denies any joint pain, swelling, or any muscle pain. ENDOCRINE: Denies any polyuria or polydipsia. The rest of the 14-point review of systems is negative. PHYSICAL EXAMINATION: GENERAL: The patient is alert and oriented x3, not in any acute distress. Well developed, well nourished. HEENT: Pupils are round and equally reacting to light. EOMI. No scleral icterus. No conjunctival pallor. Normocephalic, atraumatic. No pharyngeal erythema. No thyromegaly. CARDIOVASCULAR: S1 and S2 present. No murmurs, rubs, or gallops. PULMONARY: Chest is clear to auscultation, no wheezing or crackles. ABDOMEN: Soft, nontender, nondistended, normoactive bowel sounds. No palpable organomegaly. MUSCULOSKELETAL: No joint swelling or deformity. EXTREMITIES: No cyanosis, clubbing, or pedal edema. NEUROLOGICAL: Gross neurological examination did not reveal any focal deficits. SKIN: No rashes. Assessment and plan -Acute respiratory failure secondary to bronchospasm probably due to ALLERGIC bronchitis patient was given antibiotics in ER which are not being continued at this time. Patient is on systemic steroids at this time. We will continue to wean off oxygen possibly of discharge tomorrow. Patient is obese does have sleep apnea may be contributing to her shortness of breath patient may have some baseline gastric lung disease -Abdominal pain resolved patient may have passed gallstone CT of the abdomen is negative at this time patient pain completely resolved at this time -Type 2 diabetes mellitus uncontrolled elevated blood sugars patient was resumed on home regimen along with sliding scale -Hypertension patient will resume her home medications except for Lasix and the losartan due to mild acute renal failure -Chronic kidney disease stage III secondary to diabetic nephropathy -Acute renal failure secondary to excessive diuresis, Lasix will be held temporally today and losartan will be held for today. -Provera does -Diabetic peripheral neuropathy we'll cut down the dose of Neurontin because of the elevated serum creatinine -Morbid obesity sleep apnea- DVT prophylaxis: Subcutaneous heparin Past Medical History Past Medical History: Diabetes Mellitus, Hearing Disorder / Deafness, Hyperlipidemia, Hypertension, Osteoarthritis (OA), Thyroid Disorder Additional Past Medical History / Comment(s): Gout, heart murmur all his life, painful knees bilaterally, hx kidney stones, hard of hearing. History of Any Multi-Drug Resistant Organisms: None Reported Past Surgical History: Appendectomy, Joint Replacement, Orthopedic Surgery, Tonsillectomy Additional Past Surgical History / Comment(s): 2 ganglion cysts removed from left wrist and one from right wrist, right elbow surgery, right shoulder noemi rené, lithotripsy, right knee replacement. Past Anesthesia/Blood Transfusion Reactions: No Reported Reaction Additional Past Anesthesia/Blood Transfusion Reaction / Comment(s): No blood transfusions. Past Psychological History: No Psychological Hx Reported Smoking Status: Never smoker Past Alcohol Use History: None Reported Past Drug Use History: None Reported - Past Family History Father Family Medical History: Myocardial Infarction (ID) Additional Family Medical History / Comment(s): CABG. Sister(s) Family Medical History: Pulmonary Embolus Medications and Allergies Home Medications Medication Instructions Recorded Confirmed Type Ascorbic Acid [Vitamin C] 500 mg PO DAILY 11/22/21 03/10/23 History Atorvastatin Calcium [Lipitor] 40 mg PO DAILY 11/22/21 03/10/23 History Fenofibrate 160 mg PO DAILY 11/22/21 03/10/23 History Insulin Glargine,Hum.rec.anlog 70 units SQ HS 11/22/21 03/10/23 History [Lantus Solostar Pen] Levothyroxine Sodium [Synthroid] 50 mcg PO DAILY 11/22/21 03/10/23 History Losartan Potassium 100 mg PO DAILY 11/22/21 03/10/23 History allopurinoL 300 mg PO DAILY 11/22/21 03/10/23 History amLODIPine [Norvasc] 5 mg PO DAILY 11/22/21 03/10/23 History atenoloL 25 mg PO DAILY 11/22/21 03/10/23 History Tamsulosin HCl [Flomax] 0.4 mg PO HS #1 capsule 11/30/21 03/10/23 Rx Garlic 2,000 mg PO DAILY 05/22/22 03/10/23 History Albuterol Nebulized (Conc) 2.5 mg INHALATION RT-QID PRN 03/10/23 03/10/23 History [Ventolin Nebulized (Conc)] Albuterol Sulfate [Ventolin HFA] 2 puff INHALATION RT-QID PRN 03/10/23 03/10/23 History Benzonatate [Tessalon Perles] 100 mg PO TID PRN 03/10/23 03/10/23 History Budesonide [Pulmicort] 0.5 mg INHALATION RT-BID 03/10/23 03/10/23 History Dapagliflozin Propanediol [Farxiga] 10 mg PO DAILY 03/10/23 03/10/23 History Furosemide [Lasix] 60 mg PO DAILY 03/10/23 03/10/23 History Gabapentin [Neurontin] 400 mg PO BID 03/10/23 03/10/23 History Green Tea [place] Extract [Green Tea 500 mg PO DAILY 03/10/23 03/10/23 History Extract] Insulin Aspart [NovoLOG Flexpen] See Protocol SQ BID 03/10/23 03/10/23 History Potassium Chloride [Klor-Con 10 ER] 10 meq PO BID 03/10/23 03/10/23 History Allergies Allergy/AdvReac Type Severity Reaction Status Date / Time No Known Allergies Allergy Verified 03/10/23 07:44 Physical Exam Vitals: Vital Signs Temp Pulse Pulse Resp BP BP Pulse Ox 03/10/23 12:14 60 03/10/23 12:02 56 L 03/10/23 10:00 97.7 F 61 16 117/67 93 L 03/10/23 09:01 56 L 03/10/23 08:48 56 L 03/10/23 08:00 18 120/65 93 L 03/10/23 07:00 18 100/63 95 03/10/23 06:00 50 L 18 107/46 95 03/10/23 05:00 57 L 18 96/43 97 03/10/23 04:33 53 L 03/10/23 04:23 52 L 03/10/23 04:00 58 L 16 95/45 96 03/10/23 03:00 48 L 12 104/47 96 03/10/23 02:00 53 L 19 117/62 93 L 03/10/23 01:22 58 L 16 117/62 96 03/10/23 00:00 70 14 124/61 94 L 03/09/23 23:40 95 03/09/23 23:32 65 11 L 124/61 03/09/23 23:30 98.9 F 66 16 124/61 88 L Intake and Output 03/09/23 03/10/23 03/10/23 22:59 06:59 14:59 Intake Total 240 Balance 240 Intake: Oral 240 Other: # Voids 1 Weight 129.274 kg Results CBC & Chem 7: 03/10/23 00:18 03/10/23 00:18 Labs: Abnormal Lab Results - Last 24 Hours (Table) 03/10/23 03/10/23 Range/Units 00:18 00:18 Sodium 135 L (137-145) mmol/L BUN 45 H (9-20) mg/dL Creatinine 2.03 H (0.66-1.25) mg/dL Glucose 264 H (74-99) mg/dL Urine Glucose (UA) 4+ H (Negative)
[2023-03-10 12:43] LABS: Glucose,Whole Blood 411 mg/dL (70-110)
[2023-03-10] MEDS: atenoloL 25 MG TAB PO SCH (12:58)
[2023-03-10] MEDS: INSULIN ASPART (NovoLOG) 100 UNIT/ML VIAL SQ SCH ×2 (13:00→21:14)
--- NOTE | 2023-03-10 13:06 | CA ---
Transthoracic Echo Report Name: Chuy Ellsworth Age: 77 Gender: M : 1945 Exam Date: 03/10/2023 10:13 Exam Location: [facility] Ht (in): 72 Wt (lb): 285 Ordering Physician: Nubia Pisano DO Attending/Referring Phys: [id number], Aliya Nodulizer Ja Pack Procedure CPT: Indications: shortness of breath, cardiomegaly Cardiac Hx: Technical Quality: Fair Contrast 1: Total Dose (mL): Contrast 2: Total Dose (mL): MEASUREMENTS (Male / Female) Normal Values 2D ECHO LV Diastolic Diameter PLAX 4.7 cm 4.2 - 5.9 / 3.9 - 5.3 cm LV Systolic Diameter PLAX 2.7 cm IVS Diastolic Thickness 1.2 cm 0.6 - 1.0 / 0.6 - 0.9 cm LVPW Diastolic Thickness 1.3 cm 0.6 - 1.0 / 0.6 - 0.9 cm LV Relative Wall Thickness 0.5 RV Internal Dim ED PLAX 3.7 cm LVOT Diameter 2.3 cm Aortic Root Diameter 3.2 cm LA Systolic Diameter LX 3.0 cm 3.0 - 4.0 / 2.7 - 3.8 cm LV Diastolic Volume MOD BP 84.6 cm??? 67 - 155 / 56 - 104 cm??? LV Systolic Volume MOD BP 29.7 cm??? 22 - 58 / 19 - 49 cm??? LV Ejection Fraction MOD BP 64.9 % >= 55 % LV Cardiac Index MOD BP 1196.1 cm???/min???m??? LV Diastolic Volume MOD 4C 83.6 cm??? LV Systolic Volume MOD 4C 35.0 cm??? LV Ejection Fraction MOD 4C 58.1 % LV Cardiac Index MOD 4C 1059.6 cm???/min???m??? LV Diastolic Length 4C 7.5 cm LV Systolic Length 4C 6.2 cm LV Diastolic Volume MOD 2C 81.2 cm??? LV Systolic Volume MOD 2C 21.7 cm??? LV Ejection Fraction MOD 2C 73.3 % LV Cardiac Index MOD 2C 1297.4 cm???/min???m??? LV Diastolic Length 2C 7.1 cm LV Systolic Length 2C 5.3 cm LA Volume 50.9 cm??? 18 - 58 / 22 - 52 cm??? LA Volume Index 19.5 cm???/m??? 16 - 28 cm???/m??? DOPPLER AV Peak Velocity 181.7 cm/s AV Peak Gradient 31.6 mmHg AV Mean Velocity 178.0 cm/s AV Mean Gradient 15.0 mmHg AV Velocity Time Integral 74.5 cm LVOT Peak Velocity 111.0 cm/s LVOT Peak Gradient 4.9 mmHg LVOT Velocity Time Integral 30.0 cm LVOT Stroke Volume 119.9 cm??? LVOT Stroke Volume Index 48.4 ml/m??? LVOT Cardiac Index 2614.2 cm???/min???m??? AV Area Cont Eq vti 1.6 cm??? AV Area Cont Eq pk 2.4 cm??? MV Peak Velocity 173.5 cm/s MV Peak Gradient 12.0 mmHg MV Mean Velocity 73.0 cm/s MV Mean Gradient 2.9 mmHg MV Velocity Time Integral 53.9 cm Mitral E Point Velocity 115.8 cm/s Mitral A Point Velocity 144.5 cm/s Mitral E to A Ratio 0.8 MV Deceleration Time 303.7 ms MV E' Velocity 6.0 cm/s Mitral E to MV E' Ratio 19.4 PV Peak Velocity 129.3 cm/s PV Peak Gradient 6.7 mmHg FINDINGS Left Ventricle Normal left ventricular wall motion. Left ventricular cavity size normal. . Left ventricular ejection fraction is estimated at 55-60 %.Mildly increased left ventricular wall thickness. Right Ventricle Mild right ventricular dilatation. RVSP= 46mmHg.prominent moderator band in right ventricle (normal variant). Right Atrium Normal right atrial size. Left Atrium Normal left atrial size. LA volume index= 21ml/m2 Mitral Valve Moderate posterior MAC. Mild MR. Aortic Valve Aortic valve not well visualized. At least mild AV calcification. No aortic valve regurgitation. AV peak gradient= 31.6mmHg. Mean Gradient= 15mmHg. AV area by VTI= 1.6cm2 Tricuspid Valve Tricuspid valve not well visualized. Mild TR. Pulmonic Valve Pulmonic valve not well visualized. Trace PI. Pericardium Normal pericardium. Aorta Normal size aortic root and proximal ascending aorta. CONCLUSIONS Technically difficult study. Normal left ventricle size and systolic function Mild mitral and tricuspid regurgitation with [id number] pulmonary hypertension Previewed by: Dr. Sohail Pinto MD (Electronically Signed) Final Date: 10 March 2023 13:05
[2023-03-10] MEDS ORDERED: INSULIN DETEMIR (LEVEMIR) 100 UNIT/ML SYR SQ ONE (14:06)
[2023-03-10 17:07] LABS: Glucose,Whole Blood 456 mg/dL (70-110)
[2023-03-10] MEDS: HEPARIN SODIUM,PORCINE 5,000 UNIT/ML 1 ML VIAL SQ SCH ×2 (17:58→23:39)
[2023-03-10] MEDS ORDERED: INSULIN ASPART (NovoLOG) 100 UNIT/ML VIAL SQ ONE ×2 (18:00→21:07)
[2023-03-10 20:56] LABS: Glucose,Whole Blood 440 mg/dL (70-110)
[2023-03-10] MEDS ORDERED: INSULIN DETEMIR (LEVEMIR) 100 UNIT/ML SYR SQ SCH (21:00)
[2023-03-10] MEDS: TAMSULOSIN 0.4 MG CAP.ER.24H PO SCH (21:13)
[2023-03-10] MEDS: GABAPENTIN 100 MG CAP PO SCH (21:13)
[2023-03-11 06:37] LABS: Glucose,Whole Blood 311 mg/dL (70-110)
[2023-03-11] MEDS: INSULIN ASPART (NovoLOG) 100 UNIT/ML VIAL SQ SCH ×6 (06:38→20:54)
[2023-03-11] MEDS: SODIUM CHLORIDE 0.9% 1,000 ML IV SCH (06:39)
[2023-03-11] MEDS: guaiFENesin-DM 100-10MG/5ML 10 ML CUP PO SCH ×4 (06:39→23:36)
[2023-03-11] MEDS: methylPREDNISolone SOD SUCCI 125 MG/2 ML VIAL IV SCH ×4 (06:40→23:36)
[2023-03-11] MEDS: LEVOTHYROXINE 50 MCG TAB PO SCH (06:40)
[2023-03-11 08:26] LABS: Basophils # (A) 0.02 X 10*3/uL (0.00-0.10); Basophils % (A) 0.3 %; Eosinophils # (A) 0 X 10*3/uL (0.04-0.35); Eosinophils % (A) 0 %; HCT 38.2 % (39.6-50.0); HGB 11.9 g/dL (13.0-17.0); Lymphocytes # (A) 1.36 X 10*3/uL (0.90-5.00); Lymphocytes % (A) 21.1 %; MCH 29.7 pg (27.0-32.0); MCHC 31.2 g/dL (32.0-37.0); MCV 95.3 FL (80.0-97.0); Mean Platelet Volume 10.1 FL (9.5-12.2); Monocytes # (A) 0.25 X 10*3/uL (0.20-1.00); Monocytes % (A) 3.9 %; NRBC Per 100 WBC 0 X 10*3/uL (0.00-0.01); Neutrophils # (A) 4.73 X 10*3/uL (1.80-7.70); Neutrophils % (A) 73.5 %; Platelet Count 189 X 10*3/uL (140-440); RBC 4.01 X 10*6/uL (4.40-5.60); RDW 14.9 % (11.5-14.5); WBC 6.44 X 10*3/uL (4.50-10.00)
[2023-03-11] MEDS: SYMBICORT 160-4.5 MCG INHALER INHALATION SCH ×2 (08:44→20:20)
[2023-03-11] MEDS: IPRATROPIUM-ALBUTEROL 3 ML NEB INHALATION SCH ×4 (08:44→20:20)
[2023-03-11] MEDS: ATORVASTATIN 40 MG TAB PO SCH (09:06)
[2023-03-11] MEDS: amLODIPine 5 MG TAB PO SCH (09:06)
[2023-03-11] MEDS: atenoloL 25 MG TAB PO SCH (09:06)
[2023-03-11] MEDS: GABAPENTIN 100 MG CAP PO SCH ×2 (09:06→20:54)
[2023-03-11] MEDS: HEPARIN SODIUM,PORCINE 5,000 UNIT/ML 1 ML VIAL SQ SCH ×3 (09:06→23:36)
[2023-03-11] MEDS: allopurinoL 300 MG TAB PO SCH (09:07)
[2023-03-11] MEDS: FENOFIBRATE 160 MG TAB PO SCH (09:07)
[2023-03-11] MEDS: DAPAGLIFLOZIN PROPANEDIOL 10 MG TABLET PO SCH (09:07)
[2023-03-11 09:15] LABS: BUN/Creat Ratio 26.15 Ratio (12.00-20.00); Blood Urea Nitrogen 52.3 mg/dL (9.0-27.0); Calcium 9.1 mg/dL (8.7-10.3); Carbon Dioxide 24.4 mmol/L (21.6-31.8); Chloride 100 mmol/L (96-109); Glucose 343 mg/dL (70-110); Potassium 5.6 mmol/L (3.5-5.5); Sodium 136 mmol/L (135-145)
[2023-03-11] MEDS ORDERED: SODIUM ZIRCONIUM CYCLOSILICATE 10 GM PACKET PO ONE (09:34)
[2023-03-11] MEDS: INSULIN DETEMIR (LEVEMIR) 100 UNIT/ML SYR SQ SCH ×2 (10:48→20:54)
[2023-03-11] MEDS: AZITHROMYCIN 1,200 MG/30 ML BOTTLE PO SCH (10:49)
--- NOTE | 2023-03-11 11:48 | P.PN ---
Subjective Progress Note Date: 03/11/23 I am seeing this patient in new consultation today 03/10/2023 in the emergency room after he presented with severe right-sided flank pain earlier this morning. Patient is a 77-year-old male with multiple medical comorbidities including hypertension, hyperlipidemia, diabetes, chronic kidney disease, obesity, hypothyroidism, among other things. His new primary care provider is Dr. Esposito. He recently moved to [place] approximately 2 months ago. Patient's right flank pain started late last night. Described as sharp/stabbing, and rated 10 out of 10. It was persistent, however, has subside d with toradol, which was given in the ER. He denies any urinary complaints such as dysuria, hematuria. He does void often, after he takes his Lasix. He denies any nausea, vomiting, diarrhea, constipation, bloody or black stools. CT of abdomen and pelvis on arrival did not show any obstruction or ileus. There were scattered diverticuli without evidence of diverticulitis. No obstructive uropathy/hydronephrosis. There are multiple nonobstructive left renal calculi. Multiple simple and complex left renal cysts. There is hepatomegaly, large prostate and other benign findings. We are consulted because the patient was found to be hypoxic while in the emergency room and required supplemental oxygen. He has had an ongoing cough and shortness of breath over the last month. Cough is mostly non-productive with occasional clear sputum. Denies fevers, hemoptysis. He has been treated outpatient on three occasions with oral steroids and antibiotics. He states he initially has improvement, but symptoms worsened after tapering his steroids. He also has a nebulizer at home, and has been taking albuterol treatments 3 times a day. He denies any history of pulmonary disease such as COPD or asthma. He has smoked occasional recreational marijuana in the past, denies any previous tobacco use. 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 Patient is currently sitting up in bed, on 3 L/m nasal cannula, in no acute distress. He does not wear oxygen normally. Chest x-ray demonstrates cardiomegaly, pulmonary vessels within the upper limits of normal, no pleural effusions or pneumothorax. There is bibasilar atelectasis. No focal infiltrates or evidence of pneumonia. CBC was unremarkable. No leukocytosis. BMP shows a sodium of 135, potassium 4.6, chloride 99, serum bicarb 25, BUN 45, creatinine 2.03, glucose 264. Troponin 0.012. NT proBNP not elevated. Urinalysis are consistent with UTI. No hematuria or protein. Negative for influenza, RSV, COVID-19. Afebrile. Vital signs are stable. The patient is seen today 03/11/2023 in follow-up on the regular medical. He is currently sitting up in bed. Awake and alert in no acute distress. He is ma intaining O2 saturations in the 90s on 2 L/m per nasal cannula. Normal saline at 75 ML's per hour. He continues with a dry nonproductive cough. Echocardiogram revealed preserved left ventricular systolic function. Mild to moderate pulmonary hypertension. 8 count 6.4. Hemoglobin 11.9. Platelets 189. Sodium 136. Potassium 5.6. Bicarb 24. BUN 52. Creatinine 2.0. Glucose 343. He is continued on DuoNeb inhalations, Symbicort, Solu-Medrol. Empiric antibiotics in the form of azithromycin. Remains on Robitussin. Heparin for DVT prophylaxis. Objective - Vital Signs Vital signs: Vital Signs Temp 98.0 F 03/11/23 07:55 Pulse 60 03/11/23 09:01 Resp 16 03/11/23 08:00 BP 135/74 03/11/23 07:55 Pulse Ox 93 L 03/11/23 07:55 FiO2 Intake & Output 03/10/23 03/11/23 03/11/23 18:59 06:59 18:59 Intake Total 598 118 Balance 598 118 Weight 129.274 kg Intake: Oral 598 118 Other: Voiding Method Toilet Toilet Toilet # Voids 3 3 - Exam GENERAL EXAM: Alert, pleasant 77-year-old obese male, on 2 L nasal cannula, comfortable in no apparent distress. HEAD: Normocephalic and atraumatic EYES: Normal reaction of pupils, equal size. NOSE: Clear with pink turbinates. THROAT: No erythema or exudates. NECK: No masses, no JVD. CHEST: No chest wall deformity. LUNGS: Equal air entry with scattered expiratory wheezes.He does have a dry cough. No conversational dyspnea. CVS: S1 and S2 normal with grade 2 systolic murmur, regular rhythm. No extra heart sounds ABDOMEN: No hepatosplenomegaly, active bowel sounds, no guarding or rigidity. SPINE: No scoliosis or deformity. SKIN: No rashes CENTRAL NERVOUS SYSTEM: No focal deficits, tone is normal in all 4 extremities. EXTREMITIES: There is 1-2+ pitting edema in the bilateral lower extremities. No clubbing, or cyanosis. Peripheral pulses are intact. - Labs CBC & Chem 7: 03/11/23 06:02 03/11/23 06:02 Labs: Abnormal Lab Results - Last 24 Hours (Table) 03/10/23 03/10/23 03/10/23 Range/Units 12:41 17:05 20:54 RBC (4.40-5.60) X 10*6/uL Hgb (13.0-17.0) g/dL Hct (39.6-50.0) % MCHC (32.0-37.0) g/dL RDW (11.5-14.5) % Immature Gran # (0.00-0.04) X 10*3/uL Eosinophils # (0.04-0.35) X 10*3/uL Potassium (3.5-5.5) mmol/L BUN (9.0-27.0) mg/dL Creatinine (0.6-1.5) mg/dL Est GFR (CKD-EPI) (>=60) BUN/Creatinine Ratio (12.00-20.00) Ratio Glucose (70-110) mg/dL POC Glucose (mg/dL) 411 H 456 H 440 H (70-110) mg/dL 03/11/23 03/11/23 03/11/23 Range/Units 06:02 06:02 06:35 RBC 4.01 L (4.40-5.60) X 10*6/uL Hgb 11.9 L (13.0-17.0) g/dL Hct 38.2 L (39.6-50.0) % MCHC 31.2 L (32.0-37.0) g/dL RDW 14.9 H (11.5-14.5) % Immature Gran # 0.08 H (0.00-0.04) X 10*3/uL Eosinophils # 0 L (0.04-0.35) X 10*3/uL Potassium 5.6 H (3.5-5.5) mmol/L BUN 52.3 H (9.0-27.0) mg/dL Creatinine 2.0 H (0.6-1.5) mg/dL Est GFR (CKD-EPI) 34 L (>=60) BUN/Creatinine Ratio 26.15 H (12.00-20.00) Ratio Glucose 343 H (70-110) mg/dL POC Glucose (mg/dL) 311 H (70-110) mg/dL Assessment and Plan Assessment: Acute hypoxemic respiratory failure, currently on 2 L/m nasal cannula and suspe cted acute bronchitis, chest x-ray shows no focal infiltrates or evidence of pneumonia. Negative for influenza, RSV, COVID-19. Right flank pain, CT of the abdomen does not show any acute intra-abdominal process. No obstruction or ileus. No obstructive uropathy. Hyperlipidemia Hypertension Diabetes mellitus, insulin-dependent History of diabetic neuropathy Chronic kidney disease stage III Hypothyroidism Morbid obesity, with a BMI of 40.9 kg/m Plan: The patient was seen and evaluated Echocardiogram, labs and medications reviewed Currently stable and on 2 L nasal cannula Continue bronchodilators, steroids Continue empiric antibiotics Titrate down the FiO2 as tolerated Increase his activity as tolerated We will continue to follow This patient was seen independently by the nurse practitioner who performed the pulmonary medical decision making I have personally seen and examined the patient, performed the documentation and the assessment and plan as written. Number of minutes spent on the visit: 25.
[2023-03-11 12:13] LABS: Glucose,Whole Blood 361 mg/dL (70-110)
--- NOTE | 2023-03-11 15:50 | P.PN ---
Subjective Progress Note Date: 03/11/23 Male came in with Severe right-sided flank pain which completely resolved at this time patient pain was a crampy in nature 12/31. CT of the abdomen did not show any significant abnormality patient may have passed a gallstone urease not significant abnormal either. Although patient was admitted for bronchitis and the patient is currently requiring 3 L of oxygen saturating at 92% patient does have expiratory wheezing on exam patient is obese does have history of sleep apnea. Patient denied any history of can start failure does use Lasix at home with elevated creatinine of 2 baseline around 1.4 patient takes Lasix for peripheral edema.. ProBNP is not elevated. He is negative for influenza, RSV, COVID-19 patient is not febrile doesn't have leukocytosis. She does have a cough without any significant sputum production 03/11/2023 Patient is evaluated today sitting up in bed he continues to be bronchospastic and also dyspneic with talking. He has been to 3 L of oxygen he does not wear any home. He has some scattered wheezing throughout. Potassium elevated at 5.6 today he did receive lokelma,, his BUN is 52.3 and his creatinine was 2.0. Had echocardiogram done showing an EF of 55-60% with mild mitral and tricuspid regurgitation and mild to moderate pulmonary. Review of Systems Constitutional: Denied any fatigue denied any fever. Cardio vascular: denied any chest pain, palpitations Gastrointestinal: denied any nausea, vomiting, diarrhea Pulmonary: Denied any shortness of breath cough Neurologic denied any new focal deficits All inpatient medications were reviewed and appropriate changes in these medications as dictated in the interval history and assessment and plan. PHYSICAL EXAMINATION: GENERAL: The patient is alert and oriented x3, not in any acute distress. Well developed, well nourished. HEENT: Pupils are round and equally reacting to light. EOMI. No scleral icterus. No conjunctival pallor. Normocephalic, atraumatic. No pharyngeal erythema. No thyromegaly. CARDIOVASCULAR: S1 and S2 present. No murmurs, rubs, or gallops. PULMONARY: Chest is clear to auscultation, no wheezing or crackles. ABDOMEN: Soft, nontender, nondistended, normoactive bowel sounds. No palpable organomegaly. MUSCULOSKELETAL: No joint swelling or deformity. EXTREMITIES: No cyanosis, clubbing, or pedal edema. NEUROLOGICAL: Gross neurological examination did not reveal any focal deficits. SKIN: No rashes. Assessment and plan -Acute respiratory failure secondary to bronchospasm probably due to tracheobronchitis continue on inhaled and systemic steroids patient is also on course of azithromycin. -Abdominal pain resolved patient may have passed gallstone CT of the abdomen is negative at this time patient pain completely resolved at this time -Type 2 diabetes mellitus uncontrolled elevated blood sugars patient was resumed on home regimen along with sliding scale -Hypertension patient will resume her home medications except for Lasix and the losartan due to mild acute renal failure -Chronic kidney disease stage III secondary to diabetic nephropathy -Acute renal failure secondary to excessive diuresis, Lasix will be held temporally today and losartan will be held for today. Recommended to get a bladder scan to rule out urinary retention. -Diabetic peripheral neuropathy we'll cut down the dose of Neurontin because of the elevated serum creatinine -Morbid obesity sleep apnea- DVT prophylaxis: Subcutaneous heparin The impression and plan of care has been dictated by aKmryn Forman, Nurse Practitioner as directed. Dr. Anna MD I have performed a history and physical examination and medical decision making of this patient, discussed the same with the dictator, and agree with the dictators assessment and plan as written, documented as a scribe. Based on total visit time, I have performed more than 50% of this visit. Objective - Vital Signs Vital signs: Vital Signs Temp 98.0 F 03/11/23 14:00 Pulse 48 L 03/11/23 14:00 Resp 16 03/11/23 14:00 BP 125/65 03/11/23 14:00 Pulse Ox 93 L 03/11/23 14:00 FiO2 Intake & Output 03/10/23 03/11/23 03/11/23 18:59 06:59 18:59 Intake Total 598 398 Balance 598 398 Weight 129.274 kg Intake: Oral 598 398 Other: Voiding Method Toilet Toilet Toilet # Voids 3 3 - Labs CBC & Chem 7: 03/11/23 06:02 03/11/23 06:02 Labs: Abnormal Lab Results - Last 24 Hours (Table) 03/10/23 03/10/23 03/11/23 Range/Units 17:05 20:54 06:02 RBC 4.01 L (4.40-5.60) X 10*6/uL Hgb 11.9 L (13.0-17.0) g/dL Hct 38.2 L (39.6-50.0) % MCHC 31.2 L (32.0-37.0) g/dL RDW 14.9 H (11.5-14.5) % Immature Gran # 0.08 H (0.00-0.04) X 10*3/uL Eosinophils # 0 L (0.04-0.35) X 10*3/uL Potassium (3.5-5.5) mmol/L BUN (9.0-27.0) mg/dL Creatinine (0.6-1.5) mg/dL Est GFR (CKD-EPI) (>=60) BUN/Creatinine Ratio (12.00-20.00) Ratio Glucose (70-110) mg/dL POC Glucose (mg/dL) 456 H 440 H (70-110) mg/dL 03/11/23 03/11/23 03/11/23 Range/Units 06:02 06:35 12:11 RBC (4.40-5.60) X 10*6/uL Hgb (13.0-17.0) g/dL Hct (39.6-50.0) % MCHC (32.0-37.0) g/dL RDW (11.5-14.5) % Immature Gran # (0.00-0.04) X 10*3/uL Eosinophils # (0.04-0.35) X 10*3/uL Potassium 5.6 H (3.5-5.5) mmol/L BUN 52.3 H (9.0-27.0) mg/dL Creatinine 2.0 H (0.6-1.5) mg/dL Est GFR (CKD-EPI) 34 L (>=60) BUN/Creatinine Ratio 26.15 H (12.00-20.00) Ratio Glucose 343 H (70-110) mg/dL POC Glucose (mg/dL) 311 H 361 H (70-110) mg/dL Microbiology - Last 24 Hours (Table) 03/10/23 05:03 Blood Culture - Preliminary Blood Assessment and Plan Time with Patient: Less than 30
[2023-03-11 17:53] LABS: Glucose,Whole Blood 313 mg/dL (70-110)
[2023-03-11 20:26] LABS: Glucose,Whole Blood 355 mg/dL (70-110)
[2023-03-11] MEDS: TAMSULOSIN 0.4 MG CAP.ER.24H PO SCH (20:54)
[2023-03-12] MEDS: guaiFENesin-DM 100-10MG/5ML 10 ML CUP PO SCH ×4 (05:21→23:29)
[2023-03-12] MEDS: methylPREDNISolone SOD SUCCI 125 MG/2 ML VIAL IV SCH ×3 (05:50→17:29)
[2023-03-12] MEDS: LEVOTHYROXINE 50 MCG TAB PO SCH (05:50)
[2023-03-12 06:36] LABS: Glucose,Whole Blood 312 mg/dL (70-110)
[2023-03-12] MEDS: INSULIN DETEMIR (LEVEMIR) 100 UNIT/ML SYR SQ SCH ×2 (06:39→21:02)
[2023-03-12] MEDS: INSULIN ASPART (NovoLOG) 100 UNIT/ML VIAL SQ SCH ×7 (06:39→21:02)
[2023-03-12] MEDS: GABAPENTIN 100 MG CAP PO SCH ×2 (08:39→20:10)
[2023-03-12] MEDS: amLODIPine 5 MG TAB PO SCH (08:39)
[2023-03-12] MEDS: allopurinoL 300 MG TAB PO SCH (08:39)
[2023-03-12] MEDS: HEPARIN SODIUM,PORCINE 5,000 UNIT/ML 1 ML VIAL SQ SCH ×3 (08:39→23:29)
[2023-03-12] MEDS: atenoloL 25 MG TAB PO SCH (08:39)
[2023-03-12] MEDS: ATORVASTATIN 40 MG TAB PO SCH (08:39)
[2023-03-12] MEDS: IPRATROPIUM-ALBUTEROL 3 ML NEB INHALATION SCH ×4 (08:40→21:57)
[2023-03-12] MEDS: SYMBICORT 160-4.5 MCG INHALER INHALATION SCH ×2 (08:40→21:57)
[2023-03-12 09:18] LABS: Basophils # (A) 0.02 X 10*3/uL (0.00-0.10); Basophils % (A) 0.3 %; Eosinophils # (A) 0 X 10*3/uL (0.04-0.35); Eosinophils % (A) 0 %; HCT 38.3 % (39.6-50.0); HGB 11.9 g/dL (13.0-17.0); Lymphocytes # (A) 1.06 X 10*3/uL (0.90-5.00); Lymphocytes % (A) 13.3 %; MCH 29.4 pg (27.0-32.0); MCHC 31.1 g/dL (32.0-37.0); MCV 94.6 FL (80.0-97.0); Mean Platelet Volume 10.4 FL (9.5-12.2); Monocytes # (A) 0.39 X 10*3/uL (0.20-1.00); Monocytes % (A) 4.9 %; NRBC Per 100 WBC 0 X 10*3/uL (0.00-0.01); Neutrophils # (A) 6.36 X 10*3/uL (1.80-7.70); Neutrophils % (A) 79.4 %; Platelet Count 198 X 10*3/uL (140-440); RBC 4.05 X 10*6/uL (4.40-5.60); RDW 15.2 % (11.5-14.5)
[2023-03-12 10:15] LABS: BUN/Creat Ratio 32.83 Ratio (12.00-20.00); Blood Urea Nitrogen 59.1 mg/dL (9.0-27.0); Calcium 9.3 mg/dL (8.7-10.3); Carbon Dioxide 23.9 mmol/L (21.6-31.8); Chloride 102 mmol/L (96-109); Glucose 332 mg/dL (70-110); Potassium 5.1 mmol/L (3.5-5.5); Sodium 138 mmol/L (135-145)
[2023-03-12] MEDS: AZITHROMYCIN 1,200 MG/30 ML BOTTLE PO SCH (10:55)
[2023-03-12] MEDS: FENOFIBRATE 160 MG TAB PO SCH (10:56)
[2023-03-12] MEDS: DAPAGLIFLOZIN PROPANEDIOL 10 MG TABLET PO SCH (10:57)
--- NOTE | 2023-03-12 10:57 | P.PN ---
Subjective Progress Note Date: 03/12/23 I am seeing this patient in new consultation today 03/10/2023 in the emergency room after he presented with severe right-sided flank pain earlier this morning. Patient is a 77-year-old male with multiple medical comorbidities including hypertension, hyperlipidemia, diabetes, chronic kidney disease, obesity, hypothyroidism, among other things. His new primary care provider is Dr. Esposito. He recently moved to [place] approximately 2 months ago. Patient's right flank pain started late last night. Described as sharp/stabbing, and rated 10 out of 10. It was persistent, however, has subside d with toradol, which was given in the ER. He denies any urinary complaints such as dysuria, hematuria. He does void often, after he takes his Lasix. He denies any nausea, vomiting, diarrhea, constipation, bloody or black stools. CT of abdomen and pelvis on arrival did not show any obstruction or ileus. There were scattered diverticuli without evidence of diverticulitis. No obstructive uropathy/hydronephrosis. There are multiple nonobstructive left renal calculi. Multiple simple and complex left renal cysts. There is hepatomegaly, large prostate and other benign findings. We are consulted because the patient was found to be hypoxic while in the emergency room and required supplemental oxygen. He has had an ongoing cough and shortness of breath over the last month. Cough is mostly non-productive with occasional clear sputum. Denies fevers, hemoptysis. He has been treated outpatient on three occasions with oral steroids and antibiotics. He states he initially has improvement, but symptoms worsened after tapering his steroids. He also has a nebulizer at home, and has been taking albuterol treatments 3 times a day. He denies any history of pulmonary disease such as COPD or asthma. He has smoked occasional recreational marijuana in the past, denies any previous tobacco use. 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 Patient is currently sitting up in bed, on 3 L/m nasal cannula, in no acute distress. He does not wear oxygen normally. Chest x-ray demonstrates cardiomegaly, pulmonary vessels within the upper limits of normal, no pleural effusions or pneumothorax. There is bibasilar atelectasis. No focal infiltrates or evidence of pneumonia. CBC was unremarkable. No leukocytosis. BMP shows a sodium of 135, potassium 4.6, chloride 99, serum bicarb 25, BUN 45, creatinine 2.03, glucose 264. Troponin 0.012. NT proBNP not elevated. Urinalysis are consistent with UTI. No hematuria or protein. Negative for influenza, RSV, COVID-19. Afebrile. Vital signs are stable. The patient is seen today 03/11/2023 in follow-up on the regular medical. He is currently sitting up in bed. Awake and alert in no acute distress. He is ma intaining O2 saturations in the 90s on 2 L/m per nasal cannula. Normal saline at 75 ML's per hour. He continues with a dry nonproductive cough. Echocardiogram revealed preserved left ventricular systolic function. Mild to moderate pulmonary hypertension. 8 count 6.4. Hemoglobin 11.9. Platelets 189. Sodium 136. Potassium 5.6. Bicarb 24. BUN 52. Creatinine 2.0. Glucose 343. He is continued on DuoNeb inhalations, Symbicort, Solu-Medrol. Empiric antibiotics in the form of azithromycin. Remains on Robitussin. Heparin for DVT prophylaxis. The patient is seen today 03/12/2023 in follow-up on the regular medical floor. He is currently sitting up in a chair. Awake and alert in no acute distress. Continues to maintain O2 saturations in the 90s on 2 L/m per nasal cannula. He is afebrile. Hemodynamically stable. His pro calcitonin was 0.09. White count 8.0. Hemoglobin 11.2. Platelets were 98. Sodium 138. Potassium 5.1. Bicarb 24. BUN 60. Creatinine 1.8. He is continued on DuoNeb inhalations, Symbicort, Solu-Medrol. Empiric antibiotics in the form of azithromycin. Remains on Robitussin. Heparin for DVT prophylaxis. Objective - Vital Signs Vital signs: Vital Signs Temp 97.5 F L 03/12/23 07:00 Pulse 99 03/12/23 07:00 Resp 19 03/12/23 07:00 BP 135/67 03/12/23 07:00 Pulse Ox 95 03/12/23 07:00 FiO2 Intake & Output 03/11/23 03/12/23 03/12/23 18:59 06:59 18:59 Intake Total 398 240 Balance 398 240 Intake: Oral 398 240 Other: Voiding Method Toilet Toilet # Voids 1 2 # Bowel Movements 1 - Exam GENERAL EXAM: Alert, obese 77-year-old male, sitting up in bed, on 2 L nasal cannula, comfortable in no apparent distress. HEAD: Normocephalic and atraumatic EYES: Normal reaction of pupils, equal size. NOSE: Clear with pink turbinates. THROAT: No erythema or exudates. NECK: No masses, no JVD. CHEST: No chest wall deformity. LUNGS: Equal air entry with scattered expiratory wheezes. He does have a dry cough. No conversational dyspnea. CVS: S1 and S2 normal with grade 2 systolic murmur, regular rhythm. No extra heart sounds ABDOMEN: No hepatosplenomegaly, active bowel sounds, no guarding or rigidity. SPINE: No scoliosis or deformity. SKIN: No rashes CENTRAL NERVOUS SYSTEM: No focal deficits, tone is normal in all 4 extremities. EXTREMITIES: There is 1-2+ pitting edema in the bilateral lower extremities. No clubbing, or cyanosis. Peripheral pulses are intact. - Labs CBC & Chem 7: 03/12/23 05:27 03/12/23 05:27 Labs: Abnormal Lab Results - Last 24 Hours (Table) 03/11/23 03/11/23 03/11/23 Range/Units 12:11 17:51 20:25 RBC (4.40-5.60) X 10*6/uL Hgb (13.0-17.0) g/dL Hct (39.6-50.0) % MCHC (32.0-37.0) g/dL RDW (11.5-14.5) % Immature Gran # (0.00-0.04) X 10*3/uL Eosinophils # (0.04-0.35) X 10*3/uL Anion Gap (4.00-12.00) mmol/L BUN (9.0-27.0) mg/dL Creatinine (0.6-1.5) mg/dL Est GFR (CKD-EPI) (>=60) BUN/Creatinine Ratio (12.00-20.00) Ratio Glucose (70-110) mg/dL POC Glucose (mg/dL) 361 H 313 H 355 H (70-110) mg/dL 03/12/23 03/12/23 03/12/23 Range/Units 05:27 05:27 06:34 RBC 4.05 L (4.40-5.60) X 10*6/uL Hgb 11.9 L (13.0-17.0) g/dL Hct 38.3 L (39.6-50.0) % MCHC 31.1 L (32.0-37.0) g/dL RDW 15.2 H (11.5-14.5) % Immature Gran # 0.17 H (0.00-0.04) X 10*3/uL Eosinophils # 0 L (0.04-0.35) X 10*3/uL Anion Gap 12.10 H (4.00-12.00) mmol/L BUN 59.1 H (9.0-27.0) mg/dL Creatinine 1.8 H (0.6-1.5) mg/dL Est GFR (CKD-EPI) 38 L (>=60) BUN/Creatinine Ratio 32.83 H (12.00-20.00) Ratio Glucose 332 H (70-110) mg/dL POC Glucose (mg/dL) 312 H (70-110) mg/dL Microbiology - Last 24 Hours (Table) 03/10/23 05:03 Blood Culture - Preliminary Blood Assessment and Plan Assessment: Acute hypoxemic respiratory failure, currently on 2 L/m nasal cannula and suspected acute bronchitis, chest x-ray shows no focal infiltrates or evidence of pneumonia. Pro calcitonin 0.09. Negative for influenza, RSV, COVID-19. Right flank pain, CT of the abdomen does not show any acute intra-abdominal process. No obstruction or ileus. No obstructive uropathy. Hyperlipidemia Hypertension Diabetes mellitus, insulin-dependent History of diabetic neuropathy Chronic kidney disease stage III Hypothyroidism Morbid obesity, with a BMI of 40.9 kg/m Plan: The patient was seen and evaluated Labs and medications reviewed Currently stable and on 2 L nasal cannula Continue bronchodilators, steroids Titrate down the FiO2 as tolerated Increase his activity as tolerated We will continue to follow This patient was seen independently by the nurse practitioner I have personally seen and examined the patient, performed the documentation and the assessment and plan as written. Number of minutes spent on the visit: 22.
[2023-03-12 12:17] LABS: Glucose,Whole Blood 423 mg/dL (70-110)
[2023-03-12 17:23] LABS: Glucose,Whole Blood 353 mg/dL (70-110)
[2023-03-12] MEDS: TAMSULOSIN 0.4 MG CAP.ER.24H PO SCH (20:10)
[2023-03-12 20:21] LABS: Glucose,Whole Blood 381 mg/dL (70-110)
--- NOTE | 2023-03-12 21:41 | P.PN ---
Subjective Male came in with Severe right-sided flank pain which completely resolved at this time patient pain was a crampy in nature 12/31. CT of the abdomen did not show any significant abnormality patient may have passed a gallstone urease not significant abnormal either. Although patient was admitted for bronchitis and the patient is currently requiring 3 L of oxygen saturating at 92% patient does have expiratory wheezing on exam patient is obese does have history of sleep apnea. Patient denied any history of can start failure does use Lasix at home with elevated creatinine of 2 baseline around 1.4 patient takes Lasix for peripheral edema.. ProBNP is not elevated. He is negative for influenza, RSV, COVID-19 patient is not febrile doesn't have leukocytosis. She does have a cough without any significant sputum production 03/11/2023 Patient is evaluated today sitting up in bed he continues to be bronchospastic and also dyspneic with talking. He has been to 3 L of oxygen he does not wear any home. He has some scattered wheezing throughout. Potassium elevated at 5.6 today he did receive lokelma,, his BUN is 52.3 and his creatinine was 2.0. Had echocardiogram done showing an EF of 55-60% with mild mitral and tricuspid regurgitation and mild to moderate pulmonary. 03/12/2023 Patient presents with acute bronchitis has been followed closely by pulmonary service and his currently on IV Solu-Medrol 60 mg of Zithromax. Calcitonin is negative at 0.09. Patient sugars uncontrolled, along acting insulin 70 units with insulin sliding scale, currently on 70 units of Levemir insulin +10 units with meals. We increased the dose to 25 units with meals. Also with lower the dose of Solu-Medrol to 40 mg every 8 hours instead of 6 mg every 6 hours to help with improving hyperglycemia. Check hemoglobin A1c. Patients with right flank pain, CT of the abdomen showing enlarged liver 23.7 cm, with right adrenal mass 3.2 cm, multiple kidney cystic, the largest is 5.3 cm with multiple nonobstructing left renal calculi and large prostate 6.2 x 4.8 cm. This problem were explained for the patient, risk of cancer explained for him and he verbalized understanding and acceptance. We consulted urology service. On the presentation he has acute kidney injury with creatinine 2.2, today is improving down to 1.8, hyperkalemia is also improved and potassium today within the reference range at 5.1. Baseline creatinine 1.4-1.5 as patient has evidence of chronic kidney disease stage III. Review of systems CONSTITUTIONAL: No fever, no malaise, no fatigue. HEENT: No recent visual problems or hearing problems. Denied any sore throat. CARDIOVASCULAR: No orthopnea, PND, no palpitations, no syncope. PULMONARY: No chest wall tenderness, no hemoptysis. GASTROINTESTINAL: No diarrhea, no nausea, no vomiting,. Normoactive bowel so unds. NEUROLOGICAL: No headaches, no weakness, no numbness. Active Medications Generic Name Dose Route Start Last Admin Trade Name Freq PRN Reason Stop Dose Admin Albuterol/Ipratropium 3 ml 03/10/23 08:00 03/12/23 15:58 Ipratropium-Albuterol 3 Ml Neb INHALATION 3 ml RT-QID LINDA Administration Albuterol/Ipratropium 3 ml 03/10/23 04:23 Ipratropium-Albuterol 3 Ml Neb INHALATION RT-QID PRN Shortness Of Breath Or Wheezing Allopurinol 300 mg 03/11/23 09:00 03/12/23 08:39 Allopurinol 300 Mg Tab PO 300 mg DAILY LINDA Administration Amlodipine Besylate 5 mg 03/11/23 09:00 03/12/23 08:39 Amlodipine 5 Mg Tab PO 5 mg DAILY LINDA Administration Atenolol 25 mg 03/10/23 12:30 03/12/23 08:39 Atenolol 25 Mg Tab PO 25 mg DAILY LINDA Administration Atorvastatin Calcium 40 mg 03/11/23 09:00 03/12/23 08:39 Atorvastatin 40 Mg Tab PO 40 mg DAILY LINDA Administration Azithromycin 250 mg 03/11/23 10:15 03/12/23 10:55 Azithromycin 1,200 Mg/30 Ml Bottle PO 03/13/23 09:01 250 mg DAILY LINDA Administration Protocol Budesonide/Formoterol Fumarate 2 puff 03/11/23 08:00 03/12/23 08:40 Symbicort 160-4.5 Mcg Inhaler INHALATION Not Given RT-BID LINDA Dapagliflozin 10 mg 03/11/23 09:00 03/12/23 10:57 Dapagliflozin Propanediol 10 Mg Tablet PO 10 mg DAILY LINDA Administration Fenofibrate 160 mg 03/11/23 09:00 03/12/23 10:56 Fenofibrate 160 Mg Tab PO 160 mg DAILY LINDA Administration Gabapentin 100 mg 03/10/23 21:00 03/12/23 20:10 Gabapentin 100 Mg Cap PO 100 mg BID LINDA Administration Guaifenesin/Dextromethorphan 10 ml 03/10/23 06:00 03/12/23 17:28 Guaifenesin-Dm 100-10mg/5ml 10 Ml Cup PO 10 ml Q6HR LINDA Administration Heparin Sodium (Porcine) 5,000 unit 03/10/23 16:00 03/12/23 17:28 Heparin Sodium,Porcine 5,000 Unit/Ml 1 Ml Vial SQ 5,000 unit Q8HR LINDA Administration Insulin Aspart 0 unit 03/10/23 17:30 03/12/23 21:02 Insulin Aspart (Novolog) 100 Unit/Ml Vial SQ 10 unit ACHS LINDA Administration Protocol Insulin Aspart 25 unit 03/13/23 07:30 Insulin Aspart (Novolog) 100 Unit/Ml Vial SQ AC-TID LINDA Insulin Detemir 70 unit 03/11/23 21:00 03/12/23 21:02 Insulin Detemir (Levemir) 100 Unit/Ml Syr SQ 70 unit HS LINDA Administration Insulin Detemir 20 unit 03/11/23 10:00 03/12/23 06:39 Insulin Detemir (Levemir) 100 Unit/Ml Syr SQ 20 unit DAILY@0700 LINDA Administration Levothyroxine Sodium 50 mcg 03/11/23 06:30 03/12/23 05:50 Levothyroxine 50 Mcg Tab PO 50 mcg 0630 LINDA Administration Methylprednisolone Sodium Succinate 40 mg 03/13/23 00:00 Methylprednisolone Sod Succi 40 Mg/Ml 1 Ml Vial IV Q8HR LINDA Naloxone HCl 0.2 mg 03/10/23 03:56 Naloxone 0.4 Mg/Ml 1 Ml Vial IV Q2M PRN Opioid Reversal Tamsulosin HCl 0.4 mg 03/10/23 21:00 03/12/23 20:10 Tamsulosin 0.4 Mg Cap.Er.24h PO 0.4 mg HS LINDA Administration Objective - Vital Signs Vital signs: Vital Signs Temp 97.5 F L 03/12/23 07:00 Pulse 99 03/12/23 07:00 Resp 19 03/12/23 07:00 BP 135/67 03/12/23 07:00 Pulse Ox 95 03/12/23 07:00 FiO2 Intake & Output 03/11/23 03/12/23 03/12/23 18:59 06:59 18:59 Intake Total 398 240 Balance 398 240 Intake: Oral 398 240 Other: Voiding Method Toilet Toilet Toilet # Voids 1 2 # Bowel Movements 1 - Exam GENERAL: The patient is alert and oriented x3, not in any acute distress. Well developed, well nourished. HEENT: Pupils are round and equally reacting to light. EOMI. No scleral icterus. No conjunctival pallor. Normocephalic, atraumatic. No pharyngeal erythema. No thyromegaly. CARDIOVASCULAR: S1 and S2 present. No murmurs, rubs, or gallops. PULMONARY: Chest is clear to auscultation, no wheezing , no crackles. ABDOMEN: Soft, nontender, nondistended, normoactive bowel sounds. No palpable organomegaly. MUSCULOSKELETAL: No joint swelling or deformity. EXTREMITIES: No cyanosis, clubbing, or pedal edema. NEUROLOGICAL: Gross neurological examination did not reveal any focal deficits. SKIN: No rashes. no petechiae. - Labs CBC & Chem 7: 03/12/23 05:27 03/12/23 05:27 Labs: Abnormal Lab Results - Last 24 Hours (Table) 03/11/23 03/11/23 03/11/23 Range/Units 12:11 17:51 20:25 RBC (4.40-5.60) X 10*6/uL Hgb (13.0-17.0) g/dL Hct (39.6-50.0) % MCHC (32.0-37.0) g/dL RDW (11.5-14.5) % Immature Gran # (0.00-0.04) X 10*3/uL Eosinophils # (0.04-0.35) X 10*3/uL Anion Gap (4.00-12.00) mmol/L BUN (9.0-27.0) mg/dL Creatinine (0.6-1.5) mg/dL Est GFR (CKD-EPI) (>=60) BUN/Creatinine Ratio (12.00-20.00) Ratio Glucose (70-110) mg/dL POC Glucose (mg/dL) 361 H 313 H 355 H (70-110) mg/dL 12/20/23 12/20/23 12/20/23 Range/Units 05:27 05:27 06:34 RBC 4.05 L (4.40-5.60) X 10*6/uL Hgb 11.9 L (13.0-17.0) g/dL Hct 38.3 L (39.6-50.0) % MCHC 31.1 L (32.0-37.0) g/dL RDW 15.2 H (11.5-14.5) % Immature Gran # 0.17 H (0.00-0.04) X 10*3/uL Eosinophils # 0 L (0.04-0.35) X 10*3/uL Anion Gap 12.10 H (4.00-12.00) mmol/L BUN 59.1 H (9.0-27.0) mg/dL Creatinine 1.8 H (0.6-1.5) mg/dL Est GFR (CKD-EPI) 38 L (>=60) BUN/Creatinine Ratio 32.83 H (12.00-20.00) Ratio Glucose 332 H (70-110) mg/dL POC Glucose (mg/dL) 312 H (70-110) mg/dL Microbiology - Last 24 Hours (Table) 03/10/23 05:03 Blood Culture - Preliminary Blood Assessment and Plan Assessment: Assessment and plan -Acute respiratory failure secondary to bronchospasm probably due to tracheobronchitis continue on inhaled and systemic steroids patient is also on course of azithromycin. -Right flank pain with CAT scan showing right adrenal mass, multiple renal cysts including left complex renal cyst, multiple nonobstructive stone and a large prostate, urologist has been consulted -Abdominal pain resolved patient may have passed gallstone CT of the abdomen is negative at this time patient pain completely resolved at this time -Type 2 diabetes mellitus uncontrolled elevated blood sugars patient was resumed on home regimen along with sliding scale -Hypertension patient will resume her home medications except for Lasix and the losartan due to mild acute renal failure -Chronic kidney disease stage III secondary to diabetic nephropathy -Acute renal failure secondary to excessive diuresis, Lasix will be held temporally today and losartan will be held for today. Recommended to get a bladder scan to rule out urinary retention. -Diabetic peripheral neuropathy we'll cut down the dose of Neurontin because of the elevated serum creatinine -Morbid obesity -sleep apnea DVT prophylaxis: Subcutaneous heparin
[2023-03-13] MEDS ORDERED: methylPREDNISolone SOD SUCCI 40 MG/ML 1 ML VIAL IV SCH
[2023-03-13] MEDS: LEVOTHYROXINE 50 MCG TAB PO SCH (06:27)
[2023-03-13] MEDS: guaiFENesin-DM 100-10MG/5ML 10 ML CUP PO SCH ×2 (06:27→12:40)
[2023-03-13 06:30] LABS: Glucose,Whole Blood 228 mg/dL (70-110)
[2023-03-13] MEDS: INSULIN DETEMIR (LEVEMIR) 100 UNIT/ML SYR SQ SCH (06:43)
[2023-03-13] MEDS: INSULIN ASPART (NovoLOG) 100 UNIT/ML VIAL SQ SCH ×4 (06:43→12:41)
[2023-03-13 07:51] VITALS: RESP 18
[2023-03-13] MEDS: SYMBICORT 160-4.5 MCG INHALER INHALATION SCH (08:15)
[2023-03-13] MEDS: IPRATROPIUM-ALBUTEROL 3 ML NEB INHALATION SCH ×3 (08:15→15:50)
[2023-03-13] MEDS: AZITHROMYCIN 1,200 MG/30 ML BOTTLE PO SCH (08:23)
[2023-03-13] MEDS: HEPARIN SODIUM,PORCINE 5,000 UNIT/ML 1 ML VIAL SQ SCH ×2 (08:24→16:41)
[2023-03-13] MEDS: ATORVASTATIN 40 MG TAB PO SCH (08:24)
[2023-03-13] MEDS: allopurinoL 300 MG TAB PO SCH (08:24)
[2023-03-13] MEDS: atenoloL 25 MG TAB PO SCH (08:24)
[2023-03-13] MEDS: DAPAGLIFLOZIN PROPANEDIOL 10 MG TABLET PO SCH (08:24)
[2023-03-13] MEDS: amLODIPine 5 MG TAB PO SCH (08:24)
[2023-03-13] MEDS: GABAPENTIN 100 MG CAP PO SCH (08:24)
[2023-03-13] MEDS: FENOFIBRATE 160 MG TAB PO SCH (08:25)
[2023-03-13] MEDS ORDERED: predniSONE 20 MG TAB PO SCH (09:00)
[2023-03-13 11:41] LABS: Glucose,Whole Blood 225 mg/dL (70-110)
--- NOTE | 2023-03-13 14:05 | P.PN ---
Subjective Progress Note Date: 03/13/23 I am seeing this patient in new consultation today 03/10/2023 in the emergency room after he presented with severe right-sided flank pain earlier this morning. Patient is a 77-year-old male with multiple medical comorbidities including hypertension, hyperlipidemia, diabetes, chronic kidney disease, obesity, hypothyroidism, among other things. His new primary care provider is Dr. Esposito. He recently moved to [place] approximately 2 months ago. Patient's right flank pain started late last night. Described as sharp/stabbing, and rated 10 out of 10. It was persistent, however, has subside d with toradol, which was given in the ER. He denies any urinary complaints such as dysuria, hematuria. He does void often, after he takes his Lasix. He denies any nausea, vomiting, diarrhea, constipation, bloody or black stools. CT of abdomen and pelvis on arrival did not show any obstruction or ileus. There were scattered diverticuli without evidence of diverticulitis. No obstructive uropathy/hydronephrosis. There are multiple nonobstructive left renal calculi. Multiple simple and complex left renal cysts. There is hepatomegaly, large prostate and other benign findings. We are consulted because the patient was found to be hypoxic while in the emergency room and required supplemental oxygen. He has had an ongoing cough and shortness of breath over the last month. Cough is mostly non-productive with occasional clear sputum. Denies fevers, hemoptysis. He has been treated outpatient on three occasions with oral steroids and antibiotics. He states he initially has improvement, but symptoms worsened after tapering his steroids. He also has a nebulizer at home, and has been taking albuterol treatments 3 times a day. He denies any history of pulmonary disease such as COPD or asthma. He has smoked occasional recreational marijuana in the past, denies any previous tobacco use. 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 Patient is currently sitting up in bed, on 3 L/m nasal cannula, in no acute distress. He does not wear oxygen normally. Chest x-ray demonstrates cardiomegaly, pulmonary vessels within the upper limits of normal, no pleural effusions or pneumothorax. There is bibasilar atelectasis. No focal infiltrates or evidence of pneumonia. CBC was unremarkable. No leukocytosis. BMP shows a sodium of 135, potassium 4.6, chloride 99, serum bicarb 25, BUN 45, creatinine 2.03, glucose 264. Troponin 0.012. NT proBNP not elevated. Urinalysis are consistent with UTI. No hematuria or protein. Negative for influenza, RSV, COVID-19. Afebrile. Vital signs are stable. The patient is seen today 03/11/2023 in follow-up on the regular medical. He is currently sitting up in bed. Awake and alert in no acute distress. He is ma intaining O2 saturations in the 90s on 2 L/m per nasal cannula. Normal saline at 75 ML's per hour. He continues with a dry nonproductive cough. Echocardiogram revealed preserved left ventricular systolic function. Mild to moderate pulmonary hypertension. 8 count 6.4. Hemoglobin 11.9. Platelets 189. Sodium 136. Potassium 5.6. Bicarb 24. BUN 52. Creatinine 2.0. Glucose 343. He is continued on DuoNeb inhalations, Symbicort, Solu-Medrol. Empiric antibiotics in the form of azithromycin. Remains on Robitussin. Heparin for DVT prophylaxis. The patient is seen today 03/12/2023 in follow-up on the regular medical floor. He is currently sitting up in a chair. Awake and alert in no acute distress. Continues to maintain O2 saturations in the 90s on 2 L/m per nasal cannula. He is afebrile. Hemodynamically stable. His pro calcitonin was 0.09. White count 8.0. Hemoglobin 11.2. Platelets were 98. Sodium 138. Potassium 5.1. Bicarb 24. BUN 60. Creatinine 1.8. He is continued on DuoNeb inhalations, Symbicort, Solu-Medrol. Empiric antibiotics in the form of azithromycin. Remains on Robitussin. Heparin for DVT prophylaxis. The patient seen today 03/13/2023 in follow-up on the regular medical floor. He is currently sitting up in bed. Awake and alert in no acute distress. He is maintaining O2 saturations in the 90s on room air. No IV fluids. He remains on DuoNeb inhalations, Pulmicort and Perforomist inhalations, Solu-Medrol. Blood sugar 228. Completed azithromycin. Remains on heparin for DVT prophylaxis. Objective - Vital Signs Vital signs: Vital Signs Temp 98.3 F 03/13/23 07:00 Pulse 78 03/13/23 11:57 Resp 18 03/13/23 07:00 BP 139/72 03/13/23 07:00 Pulse Ox 92 L 03/13/23 08:23 FiO2 Intake & Output 03/12/23 03/13/23 03/13/23 18:59 06:59 18:59 Intake Total 798 240 Balance 798 240 Intake: Oral 798 240 Other: Voiding Method Toilet Toilet # Voids 3 2 1 - Exam GENERAL EXAM: Alert, obese 77-year-old male, resting in bed, on room air, comfortable in no apparent distress. HEAD: Normocephalic and atraumatic EYES: Normal reaction of pupils, equal size. NOSE: Clear with pink turbinates. THROAT: No erythema or exudates. NECK: No masses, no JVD. CHEST: No chest wall deformity. LUNGS: Equal air entry with scattered expiratory wheezes. No conversational dyspnea. CVS: S1 and S2 normal with grade 2 systolic murmur, regular rhythm. No extra heart sounds ABDOMEN: No hepatosplenomegaly, active bowel sounds, no guarding or rigidity. SPINE: No scoliosis or deformity. SKIN: No rashes CENTRAL NERVOUS SYSTEM: No focal deficits, tone is normal in all 4 extremities. EXTREMITIES: There is 1-2+ pitting edema in the bilateral lower extremities. No clubbing, or cyanosis. Peripheral pulses are intact. - Labs CBC & Chem 7: 03/12/23 05:27 03/12/23 05:27 Labs: Abnormal Lab Results - Last 24 Hours (Table) 03/12/23 03/12/23 03/12/23 Range/Units 05:27 17:21 20:20 POC Glucose (mg/dL) 353 H 381 H (70-110) mg/dL Hemoglobin A1c 9.2 H (<=6.0) % 03/13/23 03/13/23 Range/Units 06:29 11:31 POC Glucose (mg/dL) 228 H 225 H (70-110) mg/dL Hemoglobin A1c (<=6.0) % Microbiology - Last 24 Hours (Table) 03/10/23 05:03 Blood Culture - Preliminary Blood Assessment and Plan Assessment: Acute hypoxemic respiratory failure, recovered and on room air and suspected acute bronchitis, chest x-ray shows no focal infiltrates or evidence of pneumonia. Pro calcitonin 0.09. Negative for influenza, RSV, COVID-19. Right flank pain, CT of the abdomen does not show any acute intra-abdominal process. No obstruction or ileus. No obstructive uropathy. Hyperlipidemia Hypertension Diabetes mellitus, insulin-dependent History of diabetic neuropathy Chronic kidney disease stage III Hypothyroidism Morbid obesity, with a BMI of 40.9 kg/m Plan: The patient was seen and evaluated Labs and medications reviewed Currently stable and on room air Transitioned from Pulmicort and Perforomist to Symbicort Transitioned from Solu-Medrol to prednisone taper Completed empiric antibiotic Follow up in our office one week post discharge This patient was seen independently by the nurse practitioner I have personally seen and examined the patient, performed the documentation and the assessment and plan as written. Number of minutes spent on the visit: 24.
[2023-03-13 14:42] VITALS: BP 142/81; TEMP 98
[2023-03-13 16:20] VITALS: PULSE 78
--- NOTE | 2023-03-13 22:27 | P.DS ---
Providers Date of admission: 03/10/23 03:57 Attending physician: Marin Garcia MD Consults: 03/10/23 03:56 Consult Physician Urgent Consulting Provider: Bia Lee Consult Reason/Comments: hypoxic resp failure Do you want consulting provider notified?: Yes 03/12/23 11:33 Consult Physician Urgent Consulting Provider: Jerod Collins Consult Reason/Comments: (1) complex renal cyst, (2)adrenal mass Do you want consulting provider notified?: Yes Primary care physician: Samy Andrews [place] Hospital Course: Diagnoses: -Acute respiratory failure secondary to bronchospasm probably due to tracheobronchitis -Right flank pain with CAT scan showing right adrenal mass, multiple renal cysts including left complex renal cyst, multiple nonobstructive stone and a large prostate, patient preferred to urologist as an consulted -Abdominal pain resolved patient may have passed renal stone and his symptoms improved -Type 2 diabetes mellitus uncontrolled , control condition -Hypertension -Chronic kidney disease stage III secondary to diabetic nephropathy -Acute renal failure secondary to excessive diuresis, improving -Diabetic peripheral neuropathy -Morbid obesity -sleep apnea Hospital course: This is a pleasant 77 years old Male came in with Severe right-sided flank pain which completely resolved at this time patient pain was a crampy in nature 12/31. His pain resolved completely and over the last few days was asymptomatic. Also found to have acute bronchitis, he was evaluated by pulmonary service was treated with IV Solu-Medrol and Zithromax and he showed interval improvement. Today his back to baseline, his breathing quietly with no dyspnea chest pain or coughing. Pulmonary team has cleared the patient for discharge on tapered prednisone. And inhalation of steroids. CT of the abdomen showing enlarged liver 23.7 cm, with right adrenal mass 3.2 cm, multiple kidney cystic, the largest is 5.3 cm with multiple nonobstructing left renal calculi and large prostate 6.2 x 4.8 cm. patient informed and made aware about all these urological problems and liver enlargement and recommended that he follow-up with his PCP and urologist as an outpatient and he agrees. Patient today has no flank pain, no suprapubic pain no other urinary symptoms like dysuria or urgency. No evidence of urinary retention. No other change in bowel habits. No fever. Patient was cleared for discharge by pulmonary service. Problems and management plan were discussed with the patient and he verbalized understanding and acceptance Patient was found stable and can be discharged home in guarded prognosis however he needs follow-up as an outpatient. Patient was instructed to follow up with PCP within one week and patient agrees I called his office to talk to his PCP Dr. Cortés, staff told me she is not available in the office for family emergency and he would follow up with LOFT WORKER diversified crops farmer karla munoz whom I called and I discussed the case with her including the computed tomography scan findings of hepatomegaly, adrenal mass, complex renal cyst, renal stones and large prostate and she kindly took note of these findings and she told me she is going to refer him to urologist also to give me an appointment for him on 03/20, I talked to the patient and he agrees to follow up with PARTH Burgos on this date. Also is aware he is going to be referred to urologist and he agrees to follow up with Dr. Delgado in 1 week after discharge, risks including but not limited to cancer are explained for him and he verbalized understanding and acceptance. Also patient was instructed to follow up with cone tender Dr. yo and one week and he agrees with the appointments made for him on 03/26 stating he will follow-up Physical exam Gen: patient is a AAOx3, no distress CVS: S1-S2, RRR, no murmur Lungs: B/L CTA, no wheezing Abdomen: soft, no distention, no tenderness, positive bowel sounds Extremity: no leg edema or induration Time spent more than 35 minutes Patient Condition at Discharge: Stable Plan - Discharge Summary New Discharge Prescriptions: New amLODIPine [Norvasc] 10 mg PO DAILY #30 tablet predniSONE 10 mg PO DIRECTED #30 tab Insulin Glargine,Hum.rec.anlog [Lantus Solostar Pen] 90 units SQ DAILY 30 Days #3 each Continue Ascorbic Acid [Vitamin C] 500 mg PO DAILY Fenofibrate 160 mg PO DAILY Atorvastatin Calcium [Lipitor] 40 mg PO DAILY Tamsulosin HCl [Flomax] 0.4 mg PO HS #1 capsule Budesonide [Pulmicort] 0.5 mg INHALATION RT-BID Green Tea Rolla Extract [Green Tea Extract] 500 mg PO DAILY Insulin Aspart [NovoLOG Flexpen] See Protocol SQ BID Potassium Chloride [Klor-Con 10 ER] 10 meq PO BID Furosemide [Lasix] 60 mg PO DAILY atenoloL 25 mg PO DAILY Levothyroxine Sodium [Synthroid] 50 mcg PO DAILY allopurinoL 300 mg PO DAILY Garlic 2,000 mg PO DAILY Albuterol Nebulized (Conc) [Ventolin Nebulized (Conc)] 2.5 mg INHALATION RT- QID PRN PRN Reason: Shortness Of Breath Benzonatate [Tessalon Perles] 100 mg PO TID PRN PRN Reason: Cough Dapagliflozin Propanediol [Farxiga] 10 mg PO DAILY Albuterol Sulfate [Ventolin HFA] 2 puff INHALATION RT-QID PRN PRN Reason: Shortness Of Breath Gabapentin [Neurontin] 400 mg PO BID Discontinued Insulin Glargine,Hum.rec.anlog [Lantus Solostar Pen] 70 units SQ HS Losartan Potassium 100 mg PO DAILY amLODIPine [Norvasc] 5 mg PO DAILY Discharge Medication List Ascorbic Acid [Vitamin C] 500 mg PO DAILY 11/22/21 [History] Atorvastatin Calcium [Lipitor] 40 mg PO DAILY 11/22/21 [History] Fenofibrate 160 mg PO DAILY 11/22/21 [History] Levothyroxine Sodium [Synthroid] 50 mcg PO DAILY 11/22/21 [History] allopurinoL 300 mg PO DAILY 11/22/21 [History] atenoloL 25 mg PO DAILY 11/22/21 [History] Tamsulosin HCl [Flomax] 0.4 mg PO HS #1 capsule 11/30/21 [Rx] Garlic 2,000 mg PO DAILY 05/22/22 [History] Albuterol Nebulized (Conc) [Ventolin Nebulized (Conc)] 2.5 mg INHALATION RT-QID PRN 03/10/23 [History] Albuterol Sulfate [Ventolin HFA] 2 puff INHALATION RT-QID PRN 03/10/23 [History] Benzonatate [Tessalon Perles] 100 mg PO TID PRN 03/10/23 [History] Budesonide [Pulmicort] 0.5 mg INHALATION RT-BID 03/10/23 [History] Dapagliflozin Propanediol [Farxiga] 10 mg PO DAILY 03/10/23 [History] Furosemide [Lasix] 60 mg PO DAILY 03/10/23 [History] Gabapentin [Neurontin] 400 mg PO BID 03/10/23 [History] Green Tea Rolla Extract [Green Tea Extract] 500 mg PO DAILY 03/10/23 [History] Insulin Aspart [NovoLOG Flexpen] See Protocol SQ BID 03/10/23 [History] Potassium Chloride [Klor-Con 10 ER] 10 meq PO BID 03/10/23 [History] Insulin Glargine,Hum.rec.anlog [Lantus Solostar Pen] 90 units SQ DAILY 30 Days #3 each 03/13/23 [Rx] amLODIPine [Norvasc] 10 mg PO DAILY #30 tablet 03/13/23 [Rx] predniSONE 10 mg PO DIRECTED #30 tab 03/13/23 [Rx] Follow up Appointment(s)/Referral(s): Rob Delgado MD [STAFF PHYSICIAN] - 1 Week (Office will call with appointment time and date.) Chilo Núñez DO [Doctor of Osteopathic Medicine] - 03/26/23 9:15 am Priscilla Esposito [REFERRING] - 03/20/23 1:45 pm (LOFT WORKER Karla Munoz) Patient Instructions/Handouts: Hypoxia (ED) Activity/Diet/Wound Care/Special Instructions: heart healthy diet , low carbohydrate 1800 kcal per day activity is restricted till you see your doctor we recommend to check your glucose 4 times a day before each meal and at bed time , keep the results in a log book and bring it to your doctor upon your appointment date if your glucose is less than 70 or more than 400 then call 911 and come to emergency room Discharge Disposition: HOME WITH HOME HEALTH SERVICES
== END 2023-03-13 18:18 | disposition home health service (06) | DRG 189 ==
LOC: EC 23:29 → 5NMEDONC 03-10 03:56 → OBSVTOIN 03-10 03:57 → 6NMEDSUR 03-10 05:04
PROVIDERS: ADMIT Internal Medicine; ATTEND Internal Medicine
PROC: 3E0F7SF Introduction of Other Gas into Respiratory Tract, Via Natural or Artificial Opening (ICD-10-PCS; principal; 2023-03-10)
DX: J96.01 Acute respiratory failure with hypoxia (principal); Z68.41 Body mass index [BMI] 40.0-44.9, adult; N17.9 Acute kidney failure, unspecified; N39.0 Urinary tract infection, site not specified; Z20.822 Contact with and (suspected) exposure to COVID-19; J20.9 Acute bronchitis, unspecified; E11.42 Type 2 diabetes mellitus with diabetic polyneuropathy; E66.01 Morbid (severe) obesity due to excess calories; E87.5 Hyperkalemia; G47.30 Sleep apnea, unspecified; I27.20 Pulmonary hypertension, unspecified; N20.0 Calculus of kidney; N18.30 Chronic kidney disease, stage 3 unspecified; E03.9 Hypothyroidism, unspecified; Z79.890 Hormone replacement therapy; E78.5 Hyperlipidemia, unspecified; E11.22 Type 2 diabetes mellitus with diabetic chronic kidney disease; H91.90 Unspecified hearing loss, unspecified ear; I12.9 Hypertensive chronic kidney disease with stage 1 through stage 4 chronic kidney disease, or unspecified chronic kidney disease; R16.0 Hepatomegaly, not elsewhere classified; I08.1 Rheumatic disorders of both mitral and tricuspid valves; E27.8 Other specified disorders of adrenal gland; M10.9 Gout, unspecified; M19.90 Unspecified osteoarthritis, unspecified site; N28.1 Cyst of kidney, acquired; Z79.82 Long term (current) use of aspirin; Z79.84 Long term (current) use of oral hypoglycemic drugs; Z79.899 Other long term (current) drug therapy; Z82.49 Family history of ischemic heart disease and other diseases of the circulatory system; Z87.442 Personal history of urinary calculi; Z96.651 Presence of right artificial knee joint
CPT/HCPCS: 36415; 71046; 74176; 80048; 80053; 81003; 83036; 83605; 83690; 83880; 84145; 84484; 85025; 85610; 87040; 87636; 93005; 93306; 94640; 94760; 96361; 96365; 96375; 99285

== ENCOUNTER 2023-03-28 12:34 | Emergency (ER) | payer MEDICARE ==
--- NOTE | 2023-03-28 13:42 | ED ---
General Adult HPI - General Source: patient, RN notes reviewed Mode of arrival: ambulatory Limitations: no limitations <Emanuel Jane - Last Filed: 03/28/23 13:37> - General Source: patient, RN notes reviewed, old records reviewed <Constantine Kothari - Last Filed: 03/29/23 00:13> - General Stated complaint: L Leg Edema, History Diab Type 2 Time Seen by Provider: 03/28/23 13:37 - History of Present Illness Initial comments: 77-year-old male presents emergency Department chief complaint of bilateral leg swelling. Patient's progressively getting worse. States is drainage from his legs. He states have aching nature he does admit that he takes 60 mg of Lasix daily he denies any chest pain or shortness of breath he states he had a recent hospital stay for some lung issues but he was cleared by Dr. Núñez for any concerns of lung issues including COPD. (Emanuel Jane) Patient is a 77-year-old male who presents emergency Department complaining of bilateral lower extremity edema. Has been worse over the last 3-4 days. Also noticed drainage in the left lower extremity. States he does take Lasix at home and has been compliant. Has noted that he is unable to his legs up at home as his recliner is broken. Believes this may be contributory. Denies any shortness of breath. Denies any chest pain. Denies any history of CHF. Is due to see a handle turner within the next 2 weeks. Presents for further evaluation at this time. He denies any history of blood clots. He is not on blood thinners. (Constantine Kothari) - Related Data Home Medications Medication Instructions Recorded Confirmed Ascorbic Acid [Vitamin C] 500 mg PO DAILY 11/22/21 03/10/23 Atorvastatin Calcium [Lipitor] 40 mg PO DAILY 11/22/21 03/10/23 Fenofibrate 160 mg PO DAILY 11/22/21 03/10/23 Levothyroxine Sodium [Synthroid] 50 mcg PO DAILY 11/22/21 03/10/23 allopurinoL 300 mg PO DAILY 11/22/21 03/10/23 atenoloL 25 mg PO DAILY 11/22/21 03/10/23 Garlic 2,000 mg PO DAILY 05/22/22 03/10/23 Albuterol Nebulized (Conc) 2.5 mg INHALATION RT-QID PRN 03/10/23 03/10/23 [Ventolin Nebulized (Conc)] Albuterol Sulfate [Ventolin HFA] 2 puff INHALATION RT-QID PRN 03/10/23 03/10/23 Benzonatate [Tessalon Perles] 100 mg PO TID PRN 03/10/23 03/10/23 Budesonide [Pulmicort] 0.5 mg INHALATION RT-BID 03/10/23 03/10/23 Dapagliflozin Propanediol [Farxiga] 10 mg PO DAILY 03/10/23 03/10/23 Furosemide [Lasix] 60 mg PO DAILY 03/10/23 03/10/23 Gabapentin [Neurontin] 400 mg PO BID 03/10/23 03/10/23 Green Tea [place] Extract [Green Tea 500 mg PO DAILY 03/10/23 03/10/23 Extract] Insulin Aspart [NovoLOG Flexpen] See Protocol SQ BID 03/10/23 03/10/23 Potassium Chloride [Klor-Con 10 ER] 10 meq PO BID 03/10/23 03/10/23 Previous Rx's Medication Instructions Recorded Tamsulosin HCl [Flomax] 0.4 mg PO HS #1 capsule 11/30/21 Insulin Glargine,Hum.rec.anlog 90 units SQ DAILY 30 Days #3 each 03/13/23 [Lantus Solostar Pen] amLODIPine [Norvasc] 10 mg PO DAILY #30 tablet 03/13/23 predniSONE 10 mg PO DIRECTED #30 tab 03/13/23 Cephalexin [Keflex] 500 mg PO Q12HR 7 Days #14 cap 03/28/23 Allergies Allergy/AdvReac Type Severity Reaction Status Date / Time No Known Allergies Allergy Verified 03/28/23 13:58 Review of Systems ROS Other: All systems not noted in ROS Statement are negative. <Emanuel Jane - Last Filed: 03/28/23 13:37> ROS Other: All systems not noted in ROS Statement are negative. <Constantine Kothari - Last Filed: 03/29/23 00:13> ROS Statement: Those systems with pertinent positive or pertinent negative responses have been documented in the HPI. Review of Systems: CONST: Denies fever EYES: Denies blurry vision ENT: Denies nasal congestion C/V: Denies Chest pain RESP: Denies shortness of breath GI: Denies abdominal pain : Denies dysuria SKIN: Endorses clear discharge from bilateral lower extremity edema. MSK: Denies joint pain. NEURO: Denies headache (Constantine Kothari) Past Medical History Past Medical History: Diabetes Mellitus, Hearing Disorder / Deafness, Hyperlipidemia, Hypertension, Osteoarthritis (OA), Thyroid Disorder Additional Past Medical History / Comment(s): Gout, heart murmur all his life, painful knees bilaterally, hx kidney stones, hard of hearing. History of Any Multi-Drug Resistant Organisms: None Reported Past Surgical History: Appendectomy, Joint Replacement, Orthopedic Surgery, Tonsillectomy Additional Past Surgical History / Comment(s): 2 ganglion cysts removed from left wrist and one from right wrist, right elbow surgery, right shoulder surgery, lithotripsy, right knee replacement. Past Anesthesia/Blood Transfusion Reactions: No Reported Reaction Additional Past Anesthesia/Blood Transfusion Reaction / Comment(s): No blood transfusions. Past Psychological History: No Psychological Hx Reported Smoking Status: Never smoker Past Alcohol Use History: None Reported Past Drug Use History: None Reported - Past Family History Father Family Medical History: Myocardial Infarction (AL) Additional Family Medical History / Comment(s): CABG. Sister(s) Family Medical History: Pulmonary Embolus <Emanuel Jane - Last Filed: 03/28/23 13:37> General Exam <Emanuel Jane - Last Filed: 03/28/23 13:37> <Constantine Kothari - Last Filed: 03/29/23 00:13> - General Exam Comments Initial Comments: Visual Physical Exam Vital signs reviewed General: Well-appearing, nontoxic, no acute distress. Head: Normocephalic, atraumatic Eyes: PERRLA, EOMI ENT: Airway patent Chest: Nonlabored breathing Skin: No visual rash, normal skin tone Neuro: Alert and oriented 3 Musculoskeletal: No gross abnormalities (Emanuel Jane) General: Appears in no acute distress. HEAD: Normal with no signs of head trauma. EYES: PERRLA, EOMI, conjunctiva normal, no discharge. ENT: Hearing grossly intact, normal oropharynx. RESPIRATORY: Clear breath sounds bilaterally. No wheezes, rales, or rhonchi. C/V: Regular rate and rhythm. S1 and S2 auscultated, symmetrical bilateral edema., peripheral pulses 2+ and intact throughout ABD: Abd is soft, nontender, nondistended EXT: Normal range of motion, no obvious deformity SKIN: Venous stasis changes in bilateral lower extremities. Weeping venostasis of left lower extremity. Mild erythema. Possible cellulitis. No fluctuance palpated. NEURO: Alert and oriented x 4. (Constantine Kothari) Course Vital Signs 03/28/23 03/28/23 03/28/23 13:58 15:49 15:59 Temperature 97.6 F 97.8 F Pulse Rate 61 64 Pulse Rate [ 64 Pulse Oximetery ] Respiratory 16 18 Rate Blood Pressure 148/67 135/57 O2 Sat by Pulse 97 97 Oximetry 03/28/23 17:51 Temperature 98 F Pulse Rate 65 Pulse Rate [ Pulse Oximetery ] Respiratory 18 Rate Blood Pressure 129/87 O2 Sat by Pulse 98 Oximetry Medical Decision Making <Emanuel Jane - Last Filed: 03/28/23 13:37> - Lab Data Result diagrams: 03/28/23 15:13 03/28/23 15:13 - EKG Data -: EKG Interpreted by Me <Constantine Kothari - Last Filed: 03/29/23 00:13> - Medical Decision Making I completed the quick note portion of this chart signed Emanuel Jane PA-C (Emanuel Jane) Was pt. sent in by a medical professional or institution (NIRAV Smiley, MAINTENANCE AND OPERATIONS SUPERVISOR, urgent care, hospital, or [facility]...) When possible be specific @ -No Did you speak to anyone other than the patient for history (EMS, parent, family, police, friend...)? What history was obtained from this source @ -No Did you review nursing and triage notes (agree or disagree)? Why? @ -I reviewed and agree with nursing and triage notes Were old charts reviewed (outside hosp., previous admission, EMS record, old EKG, old radiological studies, urgent care reports/EKG's, [facility] records)? Report findings @ -Old charts reviewed Differential Diagnosis (chest pain, altered mental status, abdominal pain women, abdominal pain men, vaginal bleeding, weakness, fever, dyspnea, syncope, headache, dizziness, GI bleed, back pain, seizure, CVA, palpatations, mental health, musculoskeletal)? @ -Dependent Edema, CHF, DVT, cellulitis. This list is not all-inclusive. EKG interpreted by me (3pts min.). @ -As above X-rays interpreted by me (1pt min.). @ -Chest x-ray shows possible mild pulmonary vascular congestion. CT interpreted by me (1pt min.). @ -None done U/S interpreted by me (1pt. min.). @ -Bilateral duplexes revealed no evidence of DVT. What testing was considered but not performed or refused? (CT, X-rays, U/S, labs)? Why? @ -None What meds were considered but not given or refused? Why? @ -None Did you discuss the management of the patient with other professionals (p tacho i.e. , PA, MAINTENANCE AND OPERATIONS SUPERVISOR, lab, RT, psych nurse, medical social consultant, gang drill operator, teacher, radio officer, nurse outreach case manager)? Give summary @ -No Was smoking cessation discussed for >3mins.? @ -No Was critical care preformed (if so, how long)? @ -No Were there social determinants of health that impacted care today? How? (Homelessness, low income, unemployed, alcoholism, drug addiction, transpor tation, low edu. Level, literacy, decrease access to med. care, residential, rehab)? @ -No Was there de-escalation of care discussed even if they declined (Discuss DNR or withdrawal of care, Hospice)? DNR status @ -No What co-morbidities impacted this encounter? (DM, HTN, Smoking, COPD, CAD, Cancer, CVA, ARF, Chemo, Hep., AIDS, mental health diagnosis, sleep apnea, morbid obesity)? @ -None Was patient admitted / discharged? Hospital course, mention meds given and route, prescriptions, significant lab abnormalities, going to OR and other pertinent info. @ -Based on patient's presentation physical exam, presents with leg swelling. We will evaluate the patient for DVT versus dependent edema versus CHF. He was in agreement this plan. Does have a weeping venous-stasis wound of the left leg with some surrounding erythema. Vital signs within acceptable limits. Imaging unremarkable. Patient's labs are remarkable for a BNP within normal limits. Patient does have an elevated BUN/creatinine however this is chronic for the patient has history of CK D. Appears to be slightly worsened his baseline, as he is typically around 2. EKG showed no signs of acute ischemia. No evidence of DVT. No evidence of CHF. I discussed results with the patient. Patient will be placed on antibiotics as he has diabetes. . Patient was in agreement with this plan. Strict return precautions discussed. he does have follow-up with cardiology as well as his PCP in the coming weeks. I will provide the patient with a prescription for Keflex. [facility] in the next 1-3 days. I explained that the patient should return to the emergency department if they experience any worsening symptoms. Strict return precautions were discussed with the patient. The patient expressed understanding of these instructions. I answered all questions that the patient had. The patient was discharged home in good condition with their prescriptions and follow up information. Undiagnosed new problem with uncertain prognosis? @ -No Drug Therapy requiring intensive monitoring for toxicity (Heparin, Nitro, Insulin, Cardizem)? @ -No Were any procedures done? @ -No Diagnosis/symptom? @ -Dependent edema, cellulitis Acute, or Chronic, or Acute on Chronic? @ -Acute Uncomplicated (without systemic symptoms) or Complicated (systemic symptoms)? @ -Uncomplicated Side effects of treatment? @ -No Exacerbation, Progression, or Severe Exacerbation? @ -No Poses a threat to life or bodily function? How? (Chest pain, [place], AL, pneumonia, PE, COPD, DKA, ARF, appy, cholecystitis, CVA, Diverticulitis, Homicidal, Suicidal, threat to staff... and all critical care pts) @ -Unlikely (Constantine Kothari) - Lab Data Lab Results 03/28/23 03/28/23 Range/Units 15:13 15:13 WBC 8.0 (3.8-10.6) k/uL RBC 4.71 (4.30-5.90) m/uL Hgb 14.1 (13.0-17.5) gm/dL Hct 43.1 (39.0-53.0) % MCV 91.6 (80.0-100.0) fL MCH 29.9 (25.0-35.0) pg MCHC 32.6 (31.0-37.0) g/dL RDW 14.9 (11.5-15.5) % Plt Count 191 (150-450) k/uL MPV 8.4 Neutrophils % 47 % Lymphocytes % 40 % Monocytes % 6 % Eosinophils % 5 % Basophils % 0 % Neutrophils # 3.8 (1.3-7.7) k/uL Lymphocytes # 3.1 (1.0-4.8) k/uL Monocytes # 0.4 (0-1.0) k/uL Eosinophils # 0.4 (0-0.7) k/uL Basophils # 0.0 (0-0.2) k/uL Sodium 141 (137-145) mmol/L Potassium 4.7 (3.5-5.1) mmol/L Chloride 97 L (98-107) mmol/L Carbon Dioxide 26 (22-30) mmol/L Anion Gap 18 mmol/L BUN 46 H (9-20) mg/dL Creatinine 2.52 H (0.66-1.25) mg/dL Est GFR (CKD-EPI)AfAm 27 (>60 ml/min/1.73 sqM) Est GFR (CKD-EPI)NonAf 24 (>60 ml/min/1.73 sqM) Glucose 189 H (74-99) mg/dL Calcium 9.8 (8.4-10.2) mg/dL Total Bilirubin 0.7 (0.2-1.3) mg/dL AST 30 (17-59) U/L ALT 25 (4-49) U/L Alkaline Phosphatase 58 (38-126) U/L NT-Pro-B Natriuret Pep 114 pg/mL Total Protein 7.2 (6.3-8.2) g/dL Albumin 4.2 (3.5-5.0) g/dL - EKG Data EKG Comments: 12-lead Electrocardiogram Interpretation Note EKG was reviewed and interpreted by myself. 12-lead ECG performed at 1535 is interpreted by me as revealing normal sinus rhythm with incomplete right bundle branch block at a rate of 62 beats per minute. Left axis deviation. [place] interval is 171 ms, QRS ration is 102 ms, QTc is 424 ms.. There were no ST or T wave abnormalities to suggest myocardial ischemia or injury. R wave progression across the precordium was satisfactory. By my interpretation this EKG is non- diagnostic for acute ischemia. (Constantine Kothari) Disposition <Emanuel Jane - Last Filed: 03/28/23 13:37> Is patient prescribed a controlled substance at d/c from ED?: No Time of Disposition: 17:35 <Constantine Kothari - Last Filed: 03/29/23 00:13> Clinical Impression: Dependent edema, Cellulitis Disposition: HOME SELF-CARE Condition: Good Instructions (If sedation given, give patient instructions): Leg Edema (ED) Prescriptions: Cephalexin [Keflex] 500 mg PO Q12HR 7 Days #14 cap Referrals: Priscilla Esposito [Primary Care Provider] - 1-2 days
[2023-03-28 15:29] LABS: Basophils % (A) 0 %; Eosinophils # (A) 0.4 k/uL (0-0.7); Eosinophils % (A) 5 %; HCT 43.1 % (39.0-53.0); HGB 14.1 gm/dL (13.0-17.5); Lymphocytes # (A) 3.1 k/uL (1.0-4.8); Lymphocytes % (A) 40 %; MCH 29.9 pg (25.0-35.0); MCHC 32.6 g/dL (31.0-37.0); MCV 91.6 fL (80.0-100.0); Mean Platelet Volume 8.4; Monocytes # (A) 0.4 k/uL (0-1.0); Monocytes % (A) 6 %; Neutrophils # (A) 3.8 k/uL (1.3-7.7); Neutrophils % (A) 47 %; Platelet Count 191 k/uL (150-450); RBC 4.71 m/uL (4.30-5.90); RDW 14.9 % (11.5-15.5)
[2023-03-28 16:08] LABS: ALT 25 U/L (4-49); AST 30 U/L (17-59); African American GFR (CKD) 27 (>60 ml/min/1.73 sqM); Albumin 4.2 g/dL (3.5-5.0); Alkaline Phosphatase 58 U/L (38-126); Anion Gap 18 mmol/L; Blood Urea Nitrogen 46 mg/dL (9-20); Calcium 9.8 mg/dL (8.4-10.2); Carbon Dioxide 26 mmol/L (22-30); Chloride 97 mmol/L (98-107); Glucose 189 mg/dL (74-99); Non-African American GFR(CKD) 24 (>60 ml/min/1.73 sqM); Potassium 4.7 mmol/L (3.5-5.1); Sodium 141 mmol/L (137-145); Total Bilirubin 0.7 mg/dL (0.2-1.3); Total Protein 7.2 g/dL (6.3-8.2)
[2023-03-28 16:16] LABS: NT-Pro-B-Type Natriuretic Pept 114 pg/mL
[2023-03-28 16:19] VITALS: RESP 18
--- NOTE | 2023-03-28 16:37 | XR ---
EXAMINATION TYPE: XR chest 2V DATE OF EXAM: 03/28/2023 4:31 PM CLINICAL INDICATION:Male, 77 years old with history of leg edema; [facility] COMPARISON: Chest radiographs from 03/10/2023. TECHNIQUE: XR chest 2V Frontal and lateral views of the chest. FINDINGS: Lungs/Pleura: There is no evidence of pleural effusion, focal consolidation, or pneumothorax. Pulmonary vascularity: Pulmonary vascular congestion. Heart/mediastinum: Cardiomediastinal silhouette is enlarged and stable. Musculoskeletal: No acute osseous pathology. IMPRESSION: Cardiomegaly and mild pulmonary vascular congestion. Correlate with BNP for congestive heart failure.
--- NOTE | 2023-03-28 17:29 | US ---
EXAMINATION TYPE: US venous doppler duplex LE BI DATE OF EXAM: 03/28/2023 4:19 PM COMPARISON: 11/30/2021. CLINICAL INDICATION: Male, 77 years old with history of eval for dvt; bilat leg swelling, left leg we eping fluid SIDE PERFORMED: Bilateral TECHNIQUE: The lower extremity deep venous system is examined utilizing real time linear array sonog brittany with graded compression, doppler sonography and color-flow sonography. VESSELS IMAGED: Common Femoral Vein Deep Femoral Vein Greater Saphenous Vein * Femoral Vein Popliteal Vein Small Saphenous Vein * Proximal Calf Veins (* superficial vessels) Right Leg: Negative for DVT Left Leg: Negative for DVT exam limited by body habitus and edema IMPRESSION: Grayscale, color doppler, spectral doppler imaging performed of the deep veins of the lo wer extremities. There is normal flow, compressibility, vascular waveforms.
[2023-03-28] MEDS ORDERED: CEPHALEXIN 500 MG CAP PO STA (17:41)
[2023-03-28 18:09] VITALS: BP 129/87; PULSE 65; TEMP 98
== END 2023-03-28 17:53 | disposition home or self-care (01) ==
LOC: EC 12:34
DX: L03.116 Cellulitis of left lower limb (principal); I45.10 Unspecified right bundle-branch block; E11.22 Type 2 diabetes mellitus with diabetic chronic kidney disease; I12.9 Hypertensive chronic kidney disease with stage 1 through stage 4 chronic kidney disease, or unspecified chronic kidney disease; N18.9 Chronic kidney disease, unspecified; E78.5 Hyperlipidemia, unspecified; E07.9 Disorder of thyroid, unspecified; M10.9 Gout, unspecified; M19.90 Unspecified osteoarthritis, unspecified site; Z79.4 Long term (current) use of insulin; Z79.84 Long term (current) use of oral hypoglycemic drugs; Z79.890 Hormone replacement therapy; Z79.899 Other long term (current) drug therapy
CPT/HCPCS: 36415; 71046; 80053; 83880; 85025; 93005; 93970; 99285

== ENCOUNTER → 2023-04-21 | Outpatient (CLI) | payer MEDICARE ==
--- NOTE | 2023-04-22 10:43 | MR ---
EXAMINATION TYPE: MR kidney wo/w con DATE OF EXAM: 04/21/2023 9:23 AM CLINICAL INDICATION:Male, 77 years old with history of D41.02 L renal mass; COMPARISON: 05/20/2016 MRI lumbar spine. 03/10/2023 CT TECHNIQUE: Multiplanar multi-sequence imaging was performed without contrast. Post contrast imaging was performed. Post IV contrast subtraction images were also submitted for review. IV Contrast: 12 cc Gadavist FINDINGS: LOWER CHEST: No gross irregularity. ABDOMEN Liver: No evidence for hepatic steatosis or cirrhosis. Gallbladder and Bile ducts: No evidence for ductal dilation, or biliary stricture or evidence of chol edocholithiasis. The gallbladder is within normal limits. Pancreas: No ductal dilation. No evidence for solid mass. Fatty atrophy changes of the pancreatic par enchyma. Spleen: Normal for size. Adrenal glands: Fat-containing lesion within the right adrenal gland measuring up to 20 x 21 mm which extends out on fat suppression imaging. Findings most compatible with myelolipoma. The left adrenal gland is unremarkable. Kidneys: No evidence for obstructive uropathy. No suspicious renal masses. Right: Multiple high T2 signal cystic lesions are seen in the right kidney measuring up to 13 mm. No evidence for hydronephrosis no solid renal neoplasm. Left: There is a low T1/T2 signal presumably calculus in the left renal pelvis measuring up to 7 mm. No evidence of obstructive uropathy. Multiple high T2 signal cysts some with thin septations versus a djacent cyst measuring up to 5.6 cm. No suspicious solid lesions. Areas of intrinsic high T1 signal c ompatible with proteinaceous/hemorrhagic cysts measuring up to 10 mm in the left medial aspect superi miguel and in the anterior aspect inferiorly in the left measuring 9 mm. Stomach and Bowel: No evidence for bowel wall thickening or evidence for obstruction.. Peritoneum: No evidence of pneumoperitoneum or free fluid. Vasculature: No aortic aneurysm. Musculoskeletal: The osseous structures appear intact. Lymph Nodes: No gross evidence for lymphadenopathy. Abdominal wall: Unremarkable. IMPRESSION: 1. 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 No suspicious solid renal neoplasms. 2. Benign right adrenal myelolipoma.
== END | disposition home or self-care (01) ==
LOC: RADMRIMAIN 07:38
PROVIDERS: ATTEND Urology
DX: N28.1 Cyst of kidney, acquired (principal); D17.79 Benign lipomatous neoplasm of other sites; D41.02 Neoplasm of uncertain behavior of left kidney
CPT/HCPCS: 74183; A9585